=== PATIENT | male | born 1950 | race Caucasian/White ===

== ENCOUNTER → 2016-12-24 | Outpatient (CLI) | payer MEDICARE, OTHER ==
[2016-12-24 08:02] LABS: ALT 46 U/L (21-72); AST 31 U/L (17-59); Cholesterol 141 mg/dL (<200); HDL Cholesterol 44 mg/dL (40-60); Triglycerides 142 mg/dL (<150)
== END | disposition home or self-care (01) ==
LOC: LABWHC1 07:07
PROVIDERS: ATTEND Internal Medicine Interventional Cardiology
DX: E78.2 Mixed hyperlipidemia (principal)
CPT/HCPCS: 36415; 80061; 84450; 84460

== ENCOUNTER → 2017-01-17 | Outpatient (CLI) | payer MEDICARE, OTHER | END | disposition home or self-care (01) | LOC: LABWHC1 07:03 | PROVIDERS: ATTEND Urology | DX: R97.20 Elevated prostate specific antigen [PSA] (principal) | CPT/HCPCS: 36415; 84153 ==

== ENCOUNTER → 2017-08-19 | Outpatient (CLI) | payer MEDICARE, OTHER ==
[2017-08-19 08:23] LABS: ALT 46 U/L (21-72); AST 29 U/L (17-59); Albumin 4.5 g/dL (3.5-5.0); Alkaline Phosphatase 111 U/L (38-126); Anion Gap 12 mmol/L; Blood Urea Nitrogen 25 mg/dL (9-20); Calcium 9.8 mg/dL (8.4-10.2); Carbon Dioxide 30 mmol/L (22-30); Chloride 99 mmol/L (98-107); Cholesterol 143 mg/dL (<200); Glucose 138 mg/dL (74-99); HDL Cholesterol 47 mg/dL (40-60); LDL Cholesterol,Calculated 73 mg/dL (0-99); Potassium 4.5 mmol/L (3.5-5.1); Sodium 141 mmol/L (137-145); Total Bilirubin 0.7 mg/dL (0.2-1.3); Total Protein 7.1 g/dL (6.3-8.2); Triglycerides 113 mg/dL (<150)
== END | disposition home or self-care (01) ==
LOC: LABWHC1 07:17
PROVIDERS: ATTEND Internal Medicine Interventional Cardiology
DX: E78.2 Mixed hyperlipidemia (principal)
CPT/HCPCS: 36415; 80053; 80061

== ENCOUNTER → 2018-02-06 | Outpatient (CLI) | payer MEDICARE, OTHER ==
[2018-02-06 08:16] LABS: ALT 43 U/L (21-72); AST 31 U/L (17-59); Albumin 4.5 g/dL (3.5-5.0); Alkaline Phosphatase 100 U/L (38-126); Anion Gap 11 mmol/L; Blood Urea Nitrogen 14 mg/dL (9-20); Calcium 9.5 mg/dL (8.4-10.2); Carbon Dioxide 25 mmol/L (22-30); Chloride 102 mmol/L (98-107); Cholesterol 143 mg/dL (<200); Glucose 130 mg/dL (74-99); HDL Cholesterol 42 mg/dL (40-60); LDL Cholesterol,Calculated 77 mg/dL (0-99); Potassium 4.1 mmol/L (3.5-5.1); Sodium 138 mmol/L (137-145); Total Bilirubin 1.1 mg/dL (0.2-1.3); Total Protein 7.2 g/dL (6.3-8.2); Triglycerides 118 mg/dL (<150)
== END | disposition home or self-care (01) ==
LOC: LABWHC1 07:19
PROVIDERS: ATTEND Internal Medicine Interventional Cardiology
DX: E78.2 Mixed hyperlipidemia (principal)
CPT/HCPCS: 36415; 80053; 80061

== ENCOUNTER 2018-05-21 13:25 | Emergency (ER) | payer MEDICARE, OTHER ==
[2018-05-21 13:30] VITALS: BP 157/74; PULSE 60; RESP 18; TEMP 97.6
--- NOTE | 2018-05-21 13:53 | ED ---
General Adult HPI - General Chief complaint: Extremity Injury, Lower Stated complaint: Hip pain Time Seen by Provider: 05/21/18 13:41 Source: patient, RN notes reviewed Mode of arrival: ambulatory Limitations: no limitations - History of Present Illness Initial comments: Patient is a pleasant 67-year-old male presenting to the emergency department with complaints of low back and right hip discomfort. Symptoms have been present for around 1 month now. Symptoms are minimal at this time. Discomfort is positional and increases with certain movements including walking. Discomfort did increase last night after bowling. Discomfort does start and right lower back and radiates towards the hip and sometimes down towards the leg as well. No weakness. No loss of sensation. No incontinence or retention of bowel or bladder. Patient does have history of abdominal aortic aneurysm with grafting. Patient states this does not feel similar to his aneurysm. No abdominal pain. - Related Data Home Medications Medication Instructions Recorded Confirmed Acetaminophen [Tylenol Extra 500 mg PO Q6HR PRN 05/21/18 05/21/18 Strength] Atorvastatin [Lipitor] 40 mg PO HS 05/21/18 05/21/18 Cholecalciferol [Vitamin D3] 1,000 unit PO DAILY 05/21/18 05/21/18 Fish Oil/Dha/Epa [Fish Oil 1,200 1 tab PO DAILY 05/21/18 05/21/18 mg Fish Oil] Hydrochlorothiazide 25 mg PO DAILY 05/21/18 05/21/18 Metoprolol Tartrate [Lopressor] 25 mg PO BID 05/21/18 05/21/18 Multivitamins, Thera [Multivitamin 1 tab PO DAILY 05/21/18 05/21/18 (formulary)] Saw [place] 160 mg PO DAILY 05/21/18 05/21/18 Previous Rx's Medication Instructions Recorded Cyclobenzaprine [Flexeril] 10 mg PO TID PRN #12 tablet 05/21/18 methylPREDNISolone Dose Pack 24 mg PO DAILY #1 tab 05/21/18 [Medrol Dose Pack] Allergies Allergy/AdvReac Type Severity Reaction Status Date / Time No Known Allergies Allergy Verified 05/21/18 14:17 Review of Systems ROS Statement: Those systems with pertinent positive or pertinent negative responses have been documented in the HPI. ROS Other: All systems not noted in ROS Statement are negative. Constitutional: Denies: fever Eyes: Denies: eye pain ENT: Denies: ear pain Respiratory: Denies: cough Cardiovascular: Denies: chest pain Endocrine: Denies: fatigue Gastrointestinal: Denies: abdominal pain Genitourinary: Denies: dysuria Musculoskeletal: Reports: as per HPI Skin: Denies: rash Neurological: Denies: weakness Past Medical History Past Medical History: Hyperlipidemia, Hypertension, Myocardial Infarction (MO) History of Any Multi-Drug Resistant Organisms: None Reported Past Surgical History: Hernia Repair Additional Past Surgical History / Comment(s): AAA Past Psychological History: No Psychological Hx Reported Smoking Status: Current every day smoker Past Alcohol Use History: Occasional Past Drug Use History: None Reported General Exam Limitations: no limitations General appearance: alert, in no apparent distress Head exam: Present: atraumatic Eye exam: Present: normal appearance, PERRL ENT exam: Present: normal oropharynx Neck exam: Present: normal inspection Respiratory exam: Present: normal lung sounds bilaterally Cardiovascular Exam: Present: regular rate, normal rhythm Expanded Peripheral pulses: 2+: Dorsalis Pedis (R), Dorsalis Pedis (L) GI/Abdominal exam: Present: soft. Absent: distended, tenderness Extremities exam: Present: normal inspection, full ROM. Absent: tenderness Back exam: Present: tenderness (Mild tenderness right lower paralumbar region and right sciatic region.) Neurological exam: Present: alert Expanded Sensory exam: Lower Extremity Light Touch: Normal Motor strength exam: RLE: 5, LLE: 5 Psychiatric exam: Present: normal affect, normal mood Skin exam: Present: normal color Course Vital Signs 05/21/18 13:27 Temperature 97.6 F Pulse Rate 60 Respiratory 18 Rate Blood Pressure 157/74 O2 Sat by Pulse 98 Oximetry Medical Decision Making - Medical Decision Making Patient reevaluated and resting comfortably in bed. Patient updated on results. Patient is offered to have computed tomography scan done to further evaluate for other potential causes as well as his known aortic problem. Patient refuses this. Patient did state he does not feel his aorta was a cause of the symptoms. Patient did also add that he does have a follow-up appointment soon with his vascular surgeon. - Radiology Data Radiology results: image reviewed (X-ray of the right hip shows mild arthritic changes. X-ray of the lumbar spine shows mild spondylosis. There is some disc space narrowing, especially to L2-L3.) Disposition Clinical Impression: Low back pain Disposition: HOME SELF-CARE Condition: Stable Instructions: Back Pain (ED) Additional Instructions: Please follow-up with primary care physician in the next day or 2 for recheck. Consider orthopedic evaluation. Please also follow-up with her vascular surgeon in the next few days. Return for increased pain, weakness, loss of control of bowel or bladder, worsening symptoms or other concerns. Prescriptions: Cyclobenzaprine [Flexeril] 10 mg PO TID PRN #12 tablet PRN Reason: Pain methylPREDNISolone Dose Pack [Medrol Dose Pack] 24 mg PO DAILY #1 tab Is patient prescribed a controlled substance at d/c from ED?: No Referrals: Osorio Toscano MD [STAFF PHYSICIAN] - 1-2 days Anne Zheng MD [STAFF PHYSICIAN] - 1-2 days Georgette Bateman DO [Doctor of Osteopathic Medicine] - 1-2 days Time of Disposition: 15:35
--- NOTE | 2018-05-21 14:55 | XR ---
EXAMINATION TYPE: XR lumbar spine 2 or 3V DATE OF EXAM: 05/21/2018 COMPARISON: NONE HISTORY: Hip pain and back pain TECHNIQUE: 3 views FINDINGS: Vertebra have normal alignment. There is hypertrophic spurring of the endplates throughout the lumbar spine. There is no compression fracture. There is variable disc space narrowing. L2-3 disc space is more severely narrowed. Sacroiliac joints are intact. IMPRESSION: Spondylotic changes. No fracture seen.
--- NOTE | 2018-05-21 14:57 | XR ---
EXAMINATION TYPE: XR Hip RT and AP Pelvis DATE OF EXAM: 05/21/2018 COMPARISON: NONE HISTORY: Hip pain TECHNIQUE: A single AP view of the pelvis is obtained. Two views of the right hip are obtained. FINDINGS: The pelvic ring is intact. Proximal femurs are intact. There is right-sided acetabular spur ring. There is no sign of hip dysplasia. Sacroiliac joints are intact. There is vascular calcificatio n. The right hip joint space is narrowed compared to the left. Left hip joint space is normal. IMPRESSION: Mild osteoarthritis in the right hip joint. No fracture seen.
[2018-05-21] MEDS ORDERED: predniSONE 20 MG TAB PO STA (15:31)
[2018-05-21] MEDS ORDERED: CYCLOBENZAPRINE 10MG STARTER 3 TAB BTL PO STA (15:31)
== END 2018-05-21 15:43 | disposition home or self-care (01) ==
LOC: EC 13:25
DX: M54.5 Low back pain (principal); M25.551 Pain in right hip; E78.5 Hyperlipidemia, unspecified; I10 Essential (primary) hypertension; I25.2 Old myocardial infarction; F17.200 Nicotine dependence, unspecified, uncomplicated; Z53.29 Procedure and treatment not carried out because of patient's decision for other reasons; Z79.899 Other long term (current) drug therapy
CPT/HCPCS: 72100; 73502; 99283; J7512

== ENCOUNTER → 2018-08-14 | Outpatient (CLI) | payer MEDICARE, OTHER ==
[2018-08-14 17:59] LABS: Albumin 4.8 g/dL (3.80-4.90); Albumin/Globulin Ratio 2.53 (1.60-3.17); Anion Gap 9.9 mmol/L (4.00-12.00); Calcium 9.7 mg/dL (8.7-10.3); Carbon Dioxide 27.1 mmol/L (21.6-31.8); Globulin 1.9 g/dL (1.6-3.3); LDL Cholesterol,Calculated 85.4 mg/dL (0.0-131.0); Potassium 4.4 mmol/L (3.5-5.5); Total Protein 6.7 g/dL (6.2-8.2); VLDL Calculation 29.6 mg/dL (5.00-40.00)
== END | disposition home or self-care (01) ==
LOC: LABWHC1 07:13
PROVIDERS: ATTEND Internal Medicine Interventional Cardiology
DX: E78.2 Mixed hyperlipidemia (principal)
CPT/HCPCS: 36415; 80053; 80061

== ENCOUNTER → 2019-01-18 | Outpatient (CLI) | payer MEDICARE, OTHER ==
[2019-01-18 13:51] LABS: African American GFR (CKD) >90 (>60 ml/min/1.73 sqM); Blood Urea Nitrogen 14 mg/dL (9-20)
--- NOTE | 2019-01-18 14:40 | CT ---
EXAMINATION TYPE: CT soft tissue neck w con DATE OF EXAM: 01/18/2019 2:15 PM COMPARISON: None HISTORY: CHRONIC THROAT PAIN CT DLP: 337.1 mGycm Automated exposure control for dose reduction was used. CONTRAST: CT scan of the neck is performed following with IV Contrast, patient injected with 100 mL of Isovue 3 00. Axial images are obtained, coronal and sagittal reformatted images are reviewed. FINDINGS: Emphysematous changes involving the lung apices. Thyroid enhances normally. Hypertrophic and degenerative change of the vertebral column with severe multilevel degenerative disc disease. Large anterior osteophytic spurs and facet arthropathy contribute to foraminal encroachment . Correlate for scoliotic curvature. Atherosclerotic change of the carotid arteries noted greater on the right with approximate 50-60% alondra nosis of the proximal right ICA and localized 50% narrowing of the posterior margin of the proximal l eft ICA. Nasopharynx and oropharynx are symmetric. Base the tongue is symmetric. Vocal cords have a normal carlee earance. Esophageal wall may be mildly thickened but is decompressed and limited in assessment. No pathologic adenopathy. Prevertebral soft tissue structures within normal limits. Salivary glands h ave a normal appearance. IMPRESSION: 1. There is mild thickening of the wall the proximal esophagus which most likely is related to incomp lete distention correlate clinically to exclude esophagitis. 2. Bilateral carotid artery atherosclerotic change. 3. COPD. 4. If symptoms persist correlate with direct visualization.
== END | disposition home or self-care (01) ==
LOC: RADCTMAIN 13:12
PROVIDERS: ATTEND Otolaryngology
DX: J44.9 Chronic obstructive pulmonary disease, unspecified (principal); R07.0 Pain in throat
CPT/HCPCS: 82565; 84520; 70491; Q9967

== ENCOUNTER 2019-02-14 07:49 | Day surgery (SDC) | payer MEDICARE, OTHER ==
[2019-02-09 08:49] VITALS: BMI 23.0
[~2019-02-14 07:49] MED LIST: LACTATED RINGERS 1,000 ML IV SCH
[2019-02-14 08:12] VITALS: TEMP 96.2
[2019-02-14] MEDS ORDERED: LACTATED RINGERS 1,000 ML IV ONE ×2 (08:15)
[2019-02-14] MEDS ORDERED: GLYCOPYRROLATE 0.2 MG/ML 2 ML VIAL ONE (08:22)
[2019-02-14] MEDS ORDERED: LIDOCAINE 1% INJ 10MG/ML (20 ML MDV) ONE (08:22)
[2019-02-14] MEDS ORDERED: PROPOFOL 10 MG/ML 20 ML VIAL IV ONE (08:22)
--- NOTE | 2019-02-14 08:43 | P.PCN ---
Date of Procedure: 02/14/19 Procedure(s) Performed: BRIEF HISTORY: Patient is a 68-year-old, pleasant, male, scheduled for an upper endoscopy as a part of evaluation of chronic hoarseness/throat irritation for the last 6 months duration. Initially was treated with antibiotics with no help. He was evaluated by Dr. Menezes and had a nasopharyngoscopy that was unremarkable. One time he was also treated with fluconazole for possible Mckayla with no help. He was given a trial of Prilosec and Protonix for almost 6 weeks with no help. Because of the persistent symptoms and clinical suspicion for was a good he scheduled for an upper endoscopy to evaluate further. PROCEDURE PERFORMED: Esophagogastroduodenoscopy with biopsy. PREOPERATIVE DIAGNOSIS: Chronic hoarseness/throat irritation. IV sedation per anesthesia. PROCEDURE: After informed consent was obtained, the patient was brought into the endoscopy unit. IV sedation was administered by Anesthesia under continuous monitoring. Initially the Olympus GIF-140 video endoscope was inserted into the mouth. Esophagus intubated without any difficulty. It was gradually advanced into the stomach and duodenum and carefully examined. The bulb and the second part of the duodenum appeared normal. The scope at this time was withdrawn to the stomach, adequately insufflated with air, and upon careful examination, mucosa of the antrum had mild patchy areaof erythema in the prepyloric area which was biopsied. Rest of the, body, cardia and the fundus appeared normal. The scope was then withdrawn into the esophagus. The GE junction was located at 42 cm from the incisors. The esophagus appeared normal. Biopsies were done from the mid and distal esophagus to rule out reflux esophagitis. There were no erosions or ulcerations seen and the patient tolerated the procedure well. IMPRESSION: 1. Normal-appearing esophagus with no evidence of esophagitis or hiatal hernia. 2. Minimal antral gastritis. RECOMMENDATIONS: The findings of this examination were discussed with the patient as well as his family. He was advised to follow with the biopsy results. In the meantime he will continue with Protonix 40 mg daily for another 8 weeks. If he still remains symptomatic despite aggressive acid suppressive therapy for 12 weeks, he may be a candidate for a pH study off on the PPIs to evaluate further..
[2019-02-14 09:03] VITALS: BP 116/64; PULSE 65; RESP 18
== END 2019-02-14 09:46 | disposition home or self-care (01) ==
LOC: ORWHC2ENDO 07:49
PROVIDERS: ATTEND Internal Medicine Gastroenterology
DX: K29.50 Unspecified chronic gastritis without bleeding (principal); R49.0 Dysphonia; J39.2 Other diseases of pharynx; I25.10 Atherosclerotic heart disease of native coronary artery without angina pectoris; I10 Essential (primary) hypertension; E78.5 Hyperlipidemia, unspecified; I25.2 Old myocardial infarction; I73.9 Peripheral vascular disease, unspecified; F17.210 Nicotine dependence, cigarettes, uncomplicated; K21.9 Gastro-esophageal reflux disease without esophagitis; Z97.2 Presence of dental prosthetic device (complete) (partial); Z79.82 Long term (current) use of aspirin; Z79.899 Other long term (current) drug therapy
CPT/HCPCS: 88305; 43239; J2001; J2704

== ENCOUNTER → 2019-02-23 | Outpatient (CLI) | payer MEDICARE, OTHER ==
[2019-02-23 17:04] LABS: Chol/HDL Ratio 3.45; LDL Cholesterol,Calculated 72.4 mg/dL (0.0-131.0); VLDL Calculation 30.6 mg/dL (5.00-40.00)
== END | disposition home or self-care (01) ==
LOC: LABWHC1 07:29
PROVIDERS: ATTEND Nurse Practitioner Adult Health
DX: E78.2 Mixed hyperlipidemia (principal)
CPT/HCPCS: 36415; 80061; 84450; 84460

== ENCOUNTER → 2019-03-08 | Outpatient (CLI) | payer MEDICARE, OTHER ==
--- NOTE | 2019-03-08 13:25 | FL ---
EXAMINATION TYPE: FL barium swallow w video DATE OF EXAM: 03/08/2019 COMPARISON: NONE HISTORY: Dysphagia TECHNIQUE: Fluoroscopy. FINDINGS: Fluoroscopic guidance was provided for the procedure performed in conjunction with the [facility] pathology department. Please see complete report forthcoming from the Speech Pathology departmen t. Various consistencies from thin liquid to solids were administered. Fluoroscopy time 1 minute 14 seconds. Number of images: 0. No aspiration or penetration was evident. No significant pooling was observed in the vallecula. There was normal propulsion of the bolus. Note is made of large inferior cervical spine anterior spurs. IMPRESSION: 1. Normal modified barium swallow. 2. Cervical spine anterior spurring
== END | disposition home or self-care (01) ==
LOC: RADFLMAIN 10:48
PROVIDERS: ATTEND Internal Medicine Gastroenterology
DX: M46.02 Spinal enthesopathy, cervical region (principal)
CPT/HCPCS: 74230

== ENCOUNTER → 2019-03-28 | Outpatient (CLI) | payer MEDICARE, OTHER ==
--- NOTE | 2019-03-28 15:28 | XR ---
EXAMINATION TYPE: XR chest 2V DATE OF EXAM: 03/28/2019 COMPARISON: Chest x-ray and CTA chest March 19, 2016. HISTORY: Cough, presurgical study. TECHNIQUE: Frontal and lateral views of the chest are obtained. FINDINGS: There is background chronic emphysematous change without suspicious focal air space opacit y, pleural effusion, or pneumothorax seen. Pectus excavatum deformity redemonstrated. The cardiac si lhouette size remains within normal limits with atherosclerotic change in the thoracic aorta. The o sseous structures are intact. IMPRESSION: Chronic changes without acute pulmonary process.
== END | disposition home or self-care (01) ==
LOC: RADXRMAIN 14:38
PROVIDERS: ATTEND Otolaryngology
DX: R91.8 Other nonspecific abnormal finding of lung field (principal); R05 Cough
CPT/HCPCS: 71046; 93005

== ENCOUNTER 2019-12-04 01:30 | Emergency (ER) | payer MEDICARE, OTHER ==
[2019-12-04 01:38] VITALS: TEMP 98
[2019-12-04] MEDS ORDERED: LORazepam 2 MG/ML INJ IV STA (01:47)
--- NOTE | 2019-12-04 01:52 | ED ---
SOB HPI - General Chief Complaint: Shortness of Breath Stated Complaint: Diff Breathing Time Seen by Provider: 12/04/19 01:41 Source: patient Mode of arrival: ambulatory Limitations: no limitations - History of Present Illness Initial Comments: 69-year-old male patient presents to the emergency department today for evaluation of shortness of breath. Patient states around 11 PM this evening when going to bed he started to feel like he was having trouble breathing. States he is unsure exactly how to describe up with something didn't feel right. Denies any chest pain. Patient does have a history of lung cancer and did have partial lung resection and radiation. States that he has a chronic cough from this. He denies any leg swelling. Denies dizziness or weakness. Denies any fever or chills. Patient states once he started having trouble he became very anxious and worried. States that he does have history of anxiety and this happens to him. Patient denies any recent rash, abdominal pain, nausea, vomiting, diarrhea, constipation, back pain, numbness, tingling, hematuria, dysuria, urinary urgency, urinary frequency, headache, visual changes, or any other complaints. - Related Data Home Medications Medication Instructions Recorded Confirmed Atorvastatin [Lipitor] 40 mg PO HS 05/21/18 02/09/19 Cholecalciferol [Vitamin D3] 2,000 unit PO DAILY 05/21/18 02/09/19 Fish Oil/Dha/Epa [Fish Oil 1,200 1 tab PO DAILY 05/21/18 02/09/19 mg Fish Oil] Hydrochlorothiazide 25 mg PO DAILY 05/21/18 02/09/19 Metoprolol Tartrate [Lopressor] 25 mg PO BID 05/21/18 02/09/19 Multivitamins, Thera [Multivitamin 1 tab PO DAILY 05/21/18 02/09/19 (formulary)] Aspirin 325 mg PO DAILY 02/09/19 02/09/19 Pantoprazole [Protonix] 40 mg PO PC-SUPPER 02/09/19 02/09/19 Saw [place] 1,000 mg PO DAILY 02/09/19 02/09/19 Allergies Allergy/AdvReac Type Severity Reaction Status Date / Time No Known Allergies Allergy Verified 12/04/19 01:37 Review of Systems ROS Statement: Those systems with pertinent positive or pertinent negative responses have been documented in the HPI. ROS Other: All systems not noted in ROS Statement are negative. Past Medical History Past Medical History: Hyperlipidemia, Hypertension, Myocardial Infarction (MO), Osteoarthritis (OA), Prostate Disorder Additional Past Medical History / Comment(s): diff swallowing, sore throat, "prediabetic"- diet control, Last Myocardial Infarction Date:: 1991 History of Any Multi-Drug Resistant Organisms: None Reported Past Surgical History: Hernia Repair Additional Past Surgical History / Comment(s): AAA repair, oral/tongue surgery, Past Anesthesia/Blood Transfusion Reactions: No Reported Reaction Past Psychological History: No Psychological Hx Reported Smoking Status: Current every day smoker Past Alcohol Use History: Rare Past Drug Use History: None Reported - Past Family History Brother(s) Family Medical History: Cancer Additional Family Medical History / Comment(s): lung Father Additional Family Medical History / Comment(s): pancreatic General Exam Limitations: no limitations General appearance: alert, in no apparent distress, other (This a well-deve loped, well-nourished adult male patient who appears mildly anxious. Vital signs upon presentation are temperature 98.0F, pulse 66, respirations 22, blood pressure 166/75, pulse ox 97% on room air.) Eye exam: Present: normal appearance, PERRL, EOMI. Absent: scleral icterus, conjunctival injection, periorbital swelling ENT exam: Present: normal exam, normal oropharynx, mucous membranes moist Respiratory exam: Present: normal lung sounds bilaterally, other (Tachypnea). Absent: respiratory distress, wheezes, rales, rhonchi, stridor Cardiovascular Exam: Present: regular rate, normal rhythm, normal heart sounds. Absent: systolic murmur, diastolic murmur, rubs, gallop, clicks GI/Abdominal exam: Present: soft, normal bowel sounds. Absent: distended, tenderness, guarding, rebound, rigid Neurological exam: Present: alert, oriented X3, CN II-XII intact Psychiatric exam: Present: normal affect, normal mood Skin exam: Present: warm, dry, intact, normal color. Absent: rash Course Vital Signs 12/04/19 12/04/19 01:32 02:29 Temperature 98 F Pulse Rate 66 Respiratory 22 20 Rate Blood Pressure 166/75 O2 Sat by Pulse 97 Oximetry Medical Decision Making - Medical Decision Making 69-year-old male patient past medical history significant for lung cancer presents to the emergency department today for evaluation of shortness of breath and anxiety. Physical examination reveals clear equal lung sounds. He does have some tachypnea no accessory muscle use or person lip breathing noted. Oxygen saturation has been satisfactory on room air. Chest x-ray shows no acute cardio pulmonary process. Labs reviewed and are unremarkable. Troponin is negative. EKG showed normal sinus rhythm. Patient was given a dose of Ativan for his anxiety. Upon reevaluation he is resting comfortably in bed. States that his symptoms have resolved. Patient has not had any chest pain with these symptoms. He will be discharged to follow up with his primary care physician for recheck in 1-2 days. Return parameters were discussed in detail. He verbalizes understanding and agrees with this plan - Lab Data Result diagrams: 12/04/19 02:17 12/04/19 02:17 Lab Results 12/04/19 12/04/19 12/04/19 Range/Units 02:17 02:17 02:17 WBC 5.4 (3.8-10.6) k/uL RBC 4.50 (4.30-5.90) m/uL Hgb 15.5 (13.0-17.5) gm/dL Hct 44.5 (39.0-53.0) % MCV 98.9 (80.0-100.0) fL MCH 34.4 (25.0-35.0) pg MCHC 34.8 (31.0-37.0) g/dL RDW 12.4 (11.5-15.5) % Plt Count 163 (150-450) k/uL Neutrophils % 69 % Lymphocytes % 11 % Monocytes % 12 % Eosinophils % 4 % Basophils % 1 % Neutrophils # 3.7 (1.3-7.7) k/uL Lymphocytes # 0.6 L (1.0-4.8) k/uL Monocytes # 0.7 (0-1.0) k/uL Eosinophils # 0.2 (0-0.7) k/uL Basophils # 0.1 (0-0.2) k/uL PT 10.7 (9.0-12.0) sec INR 1.0 (<1.2) APTT 24.7 (22.0-30.0) sec Sodium 133 L (137-145) mmol/L Potassium 3.9 (3.5-5.1) mmol/L Chloride 100 (98-107) mmol/L Carbon Dioxide 26 (22-30) mmol/L Anion Gap 7 mmol/L BUN 15 (9-20) mg/dL Creatinine 0.66 (0.66-1.25) mg/dL Est GFR (CKD-EPI)AfAm >90 (>60 ml/min/1.73 sqM) Est GFR (CKD-EPI)NonAf >90 (>60 ml/min/1.73 sqM) Glucose 135 H (74-99) mg/dL Plasma Lactic Acid Siva (0.7-2.0) mmol/L Calcium 9.2 (8.4-10.2) mg/dL Total Bilirubin 0.3 (0.2-1.3) mg/dL AST 27 (17-59) U/L ALT 21 (4-49) U/L Alkaline Phosphatase 115 (38-126) U/L Troponin I (0.000-0.034) ng/mL Total Protein 6.6 (6.3-8.2) g/dL Albumin 4.2 (3.5-5.0) g/dL 12/04/19 12/04/19 Range/Units 02:17 02:17 WBC (3.8-10.6) k/uL RBC (4.30-5.90) m/uL Hgb (13.0-17.5) gm/dL Hct (39.0-53.0) % MCV (80.0-100.0) fL MCH (25.0-35.0) pg MCHC (31.0-37.0) g/dL RDW (11.5-15.5) % Plt Count (150-450) k/uL Neutrophils % % Lymphocytes % % Monocytes % % Eosinophils % % Basophils % % Neutrophils # (1.3-7.7) k/uL Lymphocytes # (1.0-4.8) k/uL Monocytes # (0-1.0) k/uL Eosinophils # (0-0.7) k/uL Basophils # (0-0.2) k/uL PT (9.0-12.0) sec INR (<1.2) APTT (22.0-30.0) sec Sodium (137-145) mmol/L Potassium (3.5-5.1) mmol/L Chloride (98-107) mmol/L Carbon Dioxide (22-30) mmol/L Anion Gap mmol/L BUN (9-20) mg/dL Creatinine (0.66-1.25) mg/dL Est GFR (CKD-EPI)AfAm (>60 ml/min/1.73 sqM) Est GFR (CKD-EPI)NonAf (>60 ml/min/1.73 sqM) Glucose (74-99) mg/dL Plasma Lactic Acid Siva 1.2 (0.7-2.0) mmol/L Calcium (8.4-10.2) mg/dL Total Bilirubin (0.2-1.3) mg/dL AST (17-59) U/L ALT (4-49) U/L Alkaline Phosphatase (38-126) U/L Troponin I <0.012 (0.000-0.034) ng/mL Total Protein (6.3-8.2) g/dL Albumin (3.5-5.0) g/dL - EKG Data -: EKG Interpreted by Me EKG Comments: EKG obtained at shows normal sinus rhythm with a ventricular rate of 66, [place] interval 198, QRS duration 102, QT 426, QTc 446. No evidence of ST elevation or depression. - Radiology Data Radiology results: report reviewed, image reviewed Two-view x-ray of the chest is obtained. Report was reviewed in its entirety. Impression by Dr. Wilkinson shows no active cardiopulmonary disease. Normal heart. There is clearing of minimal left-sided pleural fluid compared to old exam. Disposition Clinical Impression: Dyspnea Disposition: HOME SELF-CARE Condition: Good Instructions (If sedation given, give patient instructions): Dyspnea (ED) Additional Instructions: Follow up with your primary care physician for recheck in 1-2 days. Return to the emergency department immediately for any new, worsening, or concerning symptoms. Is patient prescribed a controlled substance at d/c from ED?: No Referrals: None,Stated [Primary Care Provider] - 1-2 days Time of Disposition: 03:10
--- NOTE | 2019-12-04 02:11 | XR ---
EXAMINATION TYPE: XR chest 2V DATE OF EXAM: 12/04/2019 COMPARISON: 03/28/2019 HISTORY: Cough. TECHNIQUE: 2 views FINDINGS: Heart is normal. Lungs are clear of consolidation. There are no hilar masses. Costophrenic angles are clear. There are chest leads. IMPRESSION: No active cardiopulmonary disease. Normal heart. There is clearing of the minimal left-si ded pleural fluid compared to old exam.
[2019-12-04 02:25] LABS: Basophils # (A) 0.1 k/uL (0-0.2); Basophils % (A) 1 %; Eosinophils # (A) 0.2 k/uL (0-0.7); Eosinophils % (A) 4 %; HCT 44.5 % (39.0-53.0); HGB 15.5 gm/dL (13.0-17.5); Lymphocytes # (A) 0.6 k/uL (1.0-4.8); Lymphocytes % (A) 11 %; MCH 34.4 pg (25.0-35.0); MCHC 34.8 g/dL (31.0-37.0); MCV 98.9 fL (80.0-100.0); Mean Platelet Volume 7.5; Monocytes # (A) 0.7 k/uL (0-1.0); Monocytes % (A) 12 %; Neutrophils # (A) 3.7 k/uL (1.3-7.7); Neutrophils % (A) 69 %; Platelet Count 163 k/uL (150-450); RDW 12.4 % (11.5-15.5); WBC 5.4 k/uL (3.8-10.6)
[2019-12-04 02:36] LABS: Partial Thromboplastin Time 24.7 sec (22.0-30.0); Prothrombin Time 10.7 sec (9.0-12.0)
[2019-12-04 02:41] LABS: ALT 21 U/L (4-49); AST 27 U/L (17-59); African American GFR (CKD) >90 (>60 ml/min/1.73 sqM); Albumin 4.2 g/dL (3.5-5.0); Alkaline Phosphatase 115 U/L (38-126); Anion Gap 7 mmol/L; Blood Urea Nitrogen 15 mg/dL (9-20); Calcium 9.2 mg/dL (8.4-10.2); Carbon Dioxide 26 mmol/L (22-30); Chloride 100 mmol/L (98-107); Glucose 135 mg/dL (74-99); Non-African American GFR(CKD) >90 (>60 ml/min/1.73 sqM); Potassium 3.9 mmol/L (3.5-5.1); Sodium 133 mmol/L (137-145); Total Bilirubin 0.3 mg/dL (0.2-1.3); Total Protein 6.6 g/dL (6.3-8.2)
[2019-12-04 03:35] VITALS: BP 132/74; PULSE 57; RESP 18
== END 2019-12-04 03:20 | disposition home or self-care (01) ==
LOC: EC 01:30
DX: R06.00 Dyspnea, unspecified (principal); I10 Essential (primary) hypertension; E78.5 Hyperlipidemia, unspecified; M19.90 Unspecified osteoarthritis, unspecified site; N42.9 Disorder of prostate, unspecified; F41.9 Anxiety disorder, unspecified; I25.2 Old myocardial infarction; F17.200 Nicotine dependence, unspecified, uncomplicated; Z79.82 Long term (current) use of aspirin; Z79.899 Other long term (current) drug therapy; Z85.118 Personal history of other malignant neoplasm of bronchus and lung; Z92.3 Personal history of irradiation; Z90.2 Acquired absence of lung [part of]; Z20.828 Contact with and (suspected) exposure to other viral communicable diseases
CPT/HCPCS: 96374; 99285; 36415; 93005; 80053; 83605; 84484; 85025; 85610; 85730; 71046; U0003; J2060

== ENCOUNTER → 2019-12-17 | Outpatient (CLI) | payer MEDICARE, OTHER ==
[2019-12-17 16:04] LABS: Chol/HDL Ratio 2.91
== END | disposition home or self-care (01) ==
LOC: LABWHC1 07:21
PROVIDERS: ATTEND Nurse Practitioner Adult Health
DX: E78.2 Mixed hyperlipidemia (principal)
CPT/HCPCS: 36415; 80061; 84450; 84460

== ENCOUNTER → 2020-02-08 | Outpatient (CLI) | payer MEDICARE, OTHER ==
--- NOTE | 2020-02-08 13:27 | FL ---
EXAMINATION TYPE: FL barium swallow w video DATE OF EXAM: 02/08/2020 COMPARISON: NONE HISTORY: Epiglottis cancer and surgery TECHNIQUE: Fluoroscopy. FINDINGS: Fluoroscopic guidance was provided for the procedure performed in conjunction with the [facility] pathology department. Please see complete report forthcoming from the Speech Pathology departmen t. Various consistencies from thin liquid to solids were administered. Fluoroscopy time 2 minutes 38 seconds. Number of images: 0. There is some transient penetration with thin liquids some trace aspiration may have been present wit hin liquids. Note is made of sluggish epiglottic inversion and reduced CP muscle relaxation. See comp lete report forthcoming from the speech pathology department. IMPRESSION: 1. Trace aspiration with transient penetration with thin liquids.
== END | disposition home or self-care (01) ==
LOC: RADFLMAIN 10:46
PROVIDERS: ATTEND Otolaryngology
DX: R13.10 Dysphagia, unspecified (principal)
CPT/HCPCS: 74230

== ENCOUNTER → 2020-05-14 | Outpatient (CLI) | payer MEDICARE, OTHER ==
[2020-05-14 11:06] LABS: African American GFR (CKD) 104.2 (60.0-200.0); Albumin 4.6 g/dL (3.80-4.90); Albumin/Globulin Ratio 2.71 (1.60-3.17); Anion Gap 6.7 mmol/L (4.00-12.00); Calcium 9.7 mg/dL (8.7-10.3); Carbon Dioxide 31.3 mmol/L (21.6-31.8); Chol/HDL Ratio 2.4; Globulin 1.7 g/dL (1.6-3.3); Non-African American GFR(CKD) 89.9 (60.0-200.0); Potassium 4.6 mmol/L (3.5-5.5); Total Protein 6.3 g/dL (6.2-8.2)
== END | disposition home or self-care (01) ==
LOC: LABWHC1 07:16
PROVIDERS: ATTEND Nurse Practitioner Adult Health
DX: E78.2 Mixed hyperlipidemia (principal); I10 Essential (primary) hypertension
CPT/HCPCS: 36415; 80053; 80061

== ENCOUNTER → 2020-11-18 | Outpatient (CLI) | payer MEDICARE, OTHER ==
[2020-11-18 20:25] LABS: Chol/HDL Ratio 2.76; LDL Cholesterol,Calculated 63.2 mg/dL (0.0-131.0); VLDL Calculation 17.8 mg/dL (5.00-40.00)
== END | disposition home or self-care (01) ==
LOC: LABWHC1 07:24
PROVIDERS: ATTEND Nurse Practitioner Adult Health
DX: E78.2 Mixed hyperlipidemia (principal)
CPT/HCPCS: 36415; 80061

== ENCOUNTER 2021-01-23 11:32 | Emergency (ER) | payer MEDICARE, OTHER ==
[2021-01-23 11:55] VITALS: BP 145/75; PULSE 67; RESP 18; TEMP 98.1
[2021-01-23] MEDS ORDERED: HYDROcodone/APAP 5-325MG 1 EACH TAB PO STA (12:27)
[2021-01-23] MEDS ORDERED: KETOROLAC 15 MG/ML 1 ML VIAL IM STA (12:29)
--- NOTE | 2021-01-23 12:47 | ED ---
Extremity Problem HPI - General Chief complaint: Extremity Problem,Nontraumatic Stated complaint: Hip pain Time Seen by Provider: 01/23/21 12:09 Source: patient, RN notes reviewed Mode of arrival: wheelchair Limitations: no limitations - History of Present Illness Initial comments: This a 70-year-old male presents emergency Department with chief complaint of left hip pain. Patient states this started over a week ago has not improved. He states is injured his hip and back in the past and usually resolves he's been trying creams, lidocaine patches no relief. Patient states it's worse when he stands, movement of his left hip. He states his shooting type pain and radiates down his leg. Denies any bowel bladder incontinence or retentionlast use no lower extremity paresthesias currently. - Related Data Home Medications Medication Instructions Recorded Confirmed Atorvastatin [Lipitor] 40 mg PO HS 05/21/18 01/23/21 Metoprolol Tartrate [Lopressor] 25 mg PO BID 05/21/18 01/23/21 hydroCHLOROthiazide 25 mg PO DAILY 05/21/18 01/23/21 Saw [place] 500 mg PO DAILY 02/09/19 01/23/21 Artificial Tears-Hypromellose 1 drop BOTH EYES QID PRN 01/23/21 01/23/21 [Artificial Tear Drops] Aspirin EC [Ecotrin Low Dose] 81 mg PO DAILY 01/23/21 01/23/21 Cholecalciferol [Vitamin D3 (25 100 mcg PO DAILY 01/23/21 01/23/21 Mcg = 1000 Iu)] Multivit-Min/FA/Lycopen/Lutein 1 tab PO DAILY 01/23/21 01/23/21 [Centrum Silver Tablet] Nitroglycerin Sl Tabs [Nitrostat] 0.4 mg SL Q5M PRN 01/23/21 01/23/21 Previous Rx's Medication Instructions Recorded predniSONE 50 mg PO DAILY #4 tab 01/23/21 Allergies Allergy/AdvReac Type Severity Reaction Status Date / Time No Known Allergies Allergy Verified 01/23/21 13:56 Review of Systems ROS Statement: Those systems with pertinent positive or pertinent negative responses have been documented in the HPI. ROS Other: All systems not noted in ROS Statement are negative. Past Medical History Past Medical History: Coronary Artery Disease (CAD), Cancer, Hyperlipidemia, Hypertension, Myocardial Infarction (MA), Osteoarthritis (OA), Prostate Disorder Additional Past Medical History / Comment(s): diff swallowing, sore throat, "prediabetic"- diet control,. throat CA Last Myocardial Infarction Date:: 1991 History of Any Multi-Drug Resistant Organisms: None Reported Past Surgical History: Hernia Repair Additional Past Surgical History / Comment(s): AAA repair, oral/tongue surgery, Past Anesthesia/Blood Transfusion Reactions: No Reported Reaction Past Psychological History: No Psychological Hx Reported Smoking Status: Former smoker Past Alcohol Use History: Rare Past Drug Use History: None Reported - Past Family History Brother(s) Family Medical History: Cancer Additional Family Medical History / Comment(s): lung Father Additional Family Medical History / Comment(s): pancreatic General Exam Limitations: no limitations General appearance: alert, in no apparent distress Head exam: Present: atraumatic, normocephalic, normal inspection Neck exam: Present: normal inspection, full ROM. Absent: tenderness, meningismus, lymphadenopathy Respiratory exam: Present: normal lung sounds bilaterally. Absent: respiratory distress, wheezes, rales, rhonchi, stridor Cardiovascular Exam: Present: regular rate, normal rhythm, normal heart sounds. Absent: systolic murmur, diastolic murmur, rubs, gallop, clicks Extremities exam: Present: other (Left hip patient has pain with range of motion, neurovascular intact equal color equal warmth strength is equal 5/5) Back exam: Present: full ROM. Absent: tenderness, muscle spasm, paraspinal tenderness, vertebral tenderness Course Vital Signs 01/23/21 11:49 Temperature 98.1 F Pulse Rate 67 Respiratory 18 Rate Blood Pressure 145/75 O2 Sat by Pulse 99 Oximetry Medical Decision Making - Medical Decision Making X-ray shows evidence of arthritic changes, sprain. Patient symptoms more related to radicular symptoms. Patient be discharged in stable condition return parameters discussed. Disposition Clinical Impression: Left hip pain, Radicular pain of left lower extremity Disposition: HOME SELF-CARE Condition: Stable Instructions (If sedation given, give patient instructions): Leg Pain (ED) Additional Instructions: Please return to the Emergency Department if symptoms worsen or any other concerns. Prescriptions: predniSONE 50 mg PO DAILY #4 tab Is patient prescribed a controlled substance at d/c from ED?: No Referrals: None,Stated [Primary Care Provider] - 1-2 days Bjorn Powers, [Doctor of Osteopathic Medicine] - 1-2 days Time of Disposition: 14:06
--- NOTE | 2021-01-23 13:35 | XR ---
EXAMINATION TYPE: XR Hip LT and AP Pelvis DATE OF EXAM: 01/23/2021 COMPARISON: NONE HISTORY: Pelvic and left hip pain for 4 days. TECHNIQUE: 2 AP views of the pelvis are obtained. Two views of the left hip are obtained. FINDINGS: There is no acute fracture/dislocation evident in the pelvis. The sacroiliac joints appea r symmetric and thought within normal limits. Pubic symphysis is intact. Overlying bowel gas noted. A symmetric moderate to severe superior joint space loss right hip with moderate right acetabular spurr ing. Vascular calcification and surgical clips right groin region. Two views of left hip show no acute fracture or dislocation. No focal lytic or sclerotic lesion seen in the proximal left femur. Mild axial joint space loss with mild to moderate acetabular spurring. Arterial vascular calcification left groin region noted. IMPRESSION: As above.
[2021-01-23] MEDS ORDERED: predniSONE 50 MG TAB PO STA (14:05)
[2021-01-23] MEDS ORDERED: ACET/COD 300 MG/30 MG STARTER PACK 6 TAB BTL PO STA (14:06)
== END 2021-01-23 14:54 | disposition home or self-care (01) ==
LOC: EC 11:32
DX: M25.552 Pain in left hip (principal); M54.10 Radiculopathy, site unspecified; I25.10 Atherosclerotic heart disease of native coronary artery without angina pectoris; E78.5 Hyperlipidemia, unspecified; I10 Essential (primary) hypertension; I25.2 Old myocardial infarction; M19.90 Unspecified osteoarthritis, unspecified site; Z79.82 Long term (current) use of aspirin; Z85.818 Personal history of malignant neoplasm of other sites of lip, oral cavity, and pharynx; Z87.891 Personal history of nicotine dependence
CPT/HCPCS: 99284; 96372; 73502; J1885; J7512

== ENCOUNTER → 2021-04-14 | Outpatient (CLI) | payer MEDICARE, OTHER ==
[2021-04-14 15:33] LABS: African American GFR (CKD) 110.7 (60.0-200.0); Albumin 4.4 g/dL (3.8-4.9); Albumin/Globulin Ratio 2.42 (1.60-3.17); Anion Gap 11.5 mmol/L (4.00-12.00); BUN/Creat Ratio 15.93 Ratio (12.00-20.00); Blood Urea Nitrogen 10.8 mg/dL (9.0-27.0); Calcium 9.8 mg/dL (8.7-10.3); Carbon Dioxide 27.9 mmol/L (21.6-31.8); Chol/HDL Ratio 2.22 Ratio; Globulin 1.8 g/dL (1.6-3.3); HDL Cholesterol 56.3 mg/dL (40.00-60.00); LDL Cholesterol,Calculated 52.5 mg/dL (0.0-131.0); Non-African American GFR(CKD) 95.5 (60.0-200.0); Potassium 4.9 mmol/L (3.5-5.5); Total Bilirubin 0.7 mg/dL (0.30-1.20); Total Protein 6.2 g/dL (6.2-8.2); Triglycerides 81.2 mg/dL (0.00-149.00); VLDL Calculation 16.24 mg/dL (5.00-40.00)
== END | disposition home or self-care (01) ==
LOC: LABWHC1 07:41
PROVIDERS: ATTEND Internal Medicine Interventional Cardiology
DX: E78.2 Mixed hyperlipidemia (principal)
CPT/HCPCS: 36415; 80053; 80061

== ENCOUNTER → 2021-04-22 | Outpatient (CLI) | payer MEDICARE, OTHER ==
[2021-04-22 08:39] LABS: Basophils # (A) 0.1 k/uL (0-0.2); Basophils % (A) 1 %; Eosinophils # (A) 0.2 k/uL (0-0.7); Eosinophils % (A) 2 %; HGB 14.7 gm/dL (13.0-17.5); Lymphocytes # (A) 0.6 k/uL (1.0-4.8); Lymphocytes % (A) 6 %; MCH 33.2 pg (25.0-35.0); MCHC 32.6 g/dL (31.0-37.0); MCV 101.9 fL (80.0-100.0); Mean Platelet Volume 7.3; Monocytes # (A) 0.9 k/uL (0-1.0); Monocytes % (A) 10 %; Neutrophils # (A) 7.4 k/uL (1.3-7.7); Neutrophils % (A) 79 %; Platelet Count 178 k/uL (150-450); RBC 4.42 m/uL (4.30-5.90); RDW 12.4 % (11.5-15.5); WBC 9.4 k/uL (3.8-10.6)
[2021-04-22 08:46] LABS: African American GFR (CKD) >90 (>60 ml/min/1.73 sqM); Anion Gap 6 mmol/L; Blood Urea Nitrogen 15 mg/dL (9-20); Calcium 9.7 mg/dL (8.4-10.2); Carbon Dioxide 31 mmol/L (22-30); Chloride 93 mmol/L (98-107); Glucose 115 mg/dL (74-99); Non-African American GFR(CKD) >90 (>60 ml/min/1.73 sqM); Potassium 4.6 mmol/L (3.5-5.1); Sodium 130 mmol/L (137-145)
[2021-04-22 08:57] LABS: Partial Thromboplastin Time 24.3 sec (22.0-30.0); Prothrombin Time 10.6 sec (9.0-12.0)
[2021-04-22 09:46] LABS: Appearance,Urine Clear (Clear); Bilirubin,Urine Negative (Negative); Blood,Urine Negative (Negative); Color,Urine Yellow; Glucose,Urine (UA) Negative (Negative); Ketones,Urine Negative (Negative); Leukocyte Esterase,Urine Negative (Negative); Nitrite,Urine Negative (Negative); PH, Urine 7.5 (5.0-8.0); Protein,Urine Negative (Negative); Specific Gravity,Urine 1.013 (1.001-1.035); Urobilinogen,Urine <2.0 mg/dL (<2.0)
--- NOTE | 2021-04-22 12:39 | XR ---
EXAMINATION TYPE: XR chest 2V DATE OF EXAM: 04/22/2021 COMPARISON: Chest x-ray 12/04/2019, CT chest 03/19/2016 HISTORY: Z01.818 TECHNIQUE: Frontal and lateral views of the chest are obtained. FINDINGS: There is no focal air space opacity, pleural effusion, or pneumothorax seen. The cardiac silhouette size is within normal limits. Prominence of the pulmonary artery could be indicative of p ulmonary artery hypertension. Aorta is dense and aneurysmal. Prominent lung volumes suggest underlyin g COPD. The osseous structures are intact. IMPRESSION: No acute cardiopulmonary process. Emphysema. Thoracic aortic aneurysm.
== END | disposition home or self-care (01) ==
LOC: LABPAT 07:35
PROVIDERS: ATTEND Orthopaedic Surgery Orthopaedic Surgery of the Spine
DX: Z01.818 Encounter for other preprocedural examination (principal); M51.26 Other intervertebral disc displacement, lumbar region; I71.2 Thoracic aortic aneurysm, without rupture; J43.9 Emphysema, unspecified
CPT/HCPCS: 71046; 80048; 81003; 85025; 85610; 85730

== ENCOUNTER 2021-05-04 06:16 | Day surgery (SDC) | payer MEDICARE, OTHER ==
[2021-04-30 09:45] VITALS: BMI 19.9
[~2021-05-04 06:16] MED LIST changes: +DEXAMETHASONE SOD PHOSPHATE 4 MG/ML 1 ML VIAL IV ONE; +ONDANSETRON 4 MG/2 ML VIAL IVP ONE; +ceFAZolin 1,000 MG in SODIUM CHLORIDE 0.9% IRRIGATIO 1,000 ML IRRIGATION PRN
[2021-05-04 07:13] LABS: Glucose,Whole Blood 115 mg/dL (75-99)
[2021-05-04] MEDS ORDERED: MIDAZOLAM 2 MG/2 ML VIAL ONE (07:31)
[2021-05-04] MEDS ORDERED: NEOSTIGMINE 1 MG/ML 10 ML VIAL ONE (07:31)
[2021-05-04] MEDS ORDERED: PROPOFOL 10 MG/ML 20 ML VIAL IV ONE (07:31)
[2021-05-04] MEDS ORDERED: ROCURONIUM 10 MG/ML (5 ML VIAL) IV ONE (07:31)
[2021-05-04] MEDS ORDERED: LIDOCAINE 1% INJ 10MG/ML (20 ML MDV) ONE (07:31)
[2021-05-04] MEDS ORDERED: fentaNYL (PF) 50 MCG/ML 2 ML AMP ONE (07:31)
[2021-05-04] MEDS ORDERED: PHENYLEPHRINE-0.9% NACL SYG 1,000 MCG/10 ML SYRINGE ONE (07:31)
[2021-05-04] MEDS ORDERED: GLYCOPYRROLATE 0.2 MG/ML 2 ML VIAL ONE (07:31)
[2021-05-04] MEDS ORDERED: SUCCINYLCHOLINE CHLORIDE 100 MG/5 ML SYR IV ONE (07:31)
[2021-05-04] MEDS ORDERED: methylPREDNISolone ACETATE 40 MG/ML 1 ML VIAL MISCELLANE ONE (07:36)
[2021-05-04] MEDS ORDERED: LIDOCAINE 0.5%-EPI 1:200,000 50 ML VIAL SQ ONE (07:36)
[2021-05-04] MEDS ORDERED: THROMBIN (BOVINE) 5,000 UNIT VIAL TOPICAL ONE (07:36)
[2021-05-04] MEDS ORDERED: GELATIN SPONGE,ABSORB (LARGE) 1 EACH SPONGE TOPICAL ONE (07:36)
[2021-05-04 07:41] LABS: ALT 29 U/L (4-49); AST 30 U/L (17-59); African American GFR (CKD) >90 (>60 ml/min/1.73 sqM); Albumin 4.4 g/dL (3.5-5.0); Alkaline Phosphatase 110 U/L (38-126); Anion Gap 8 mmol/L; Blood Urea Nitrogen 15 mg/dL (9-20); Calcium 9.7 mg/dL (8.4-10.2); Carbon Dioxide 27 mmol/L (22-30); Chloride 97 mmol/L (98-107); Glucose 129 mg/dL (74-99); Non-African American GFR(CKD) >90 (>60 ml/min/1.73 sqM); Potassium 4.2 mmol/L (3.5-5.1); Sodium 132 mmol/L (137-145); Total Protein 7.1 g/dL (6.3-8.2)
--- NOTE | 2021-05-04 08:53 | FL ---
EXAMINATION TYPE: FL guidance operating room, XR lumbar spine 1V DATE OF EXAM: 05/04/2021 CLINICAL HISTORY: Low back pain. Herniated disc. TECHNIQUE: Fluoroscopy. Lumbar spine intraoperative one view. COMPARISON: None. FINDINGS: Fluoroscopic guidance was provided during lumbar laminectomy procedure performed by Dr. August dye. A total of 1 seconds of fluoroscopic time was utilized during the procedure and 1 spot intraope rative image is acquired. Single image acquired shows intraoperative access from posterior approach at L5 level. IMPRESSION: As Above.
[2021-05-04] MEDS ORDERED: LACTATED RINGERS 1,000 ML IV ONE (08:58)
[2021-05-04] MEDS ORDERED: ACETAMINOPHEN TAB 325 MG TAB PO PRN (09:13)
[2021-05-04] MEDS ORDERED: traMADol 50 MG TAB PO PRN (09:13)
[2021-05-04] MEDS ORDERED: BENZOCAINE/MENTHOL LOZENG 1 EACH LOZENGE MUCOUS MEM PRN (09:13)
[2021-05-04] MEDS ORDERED: ONDANSETRON 4 MG/2 ML VIAL IVP PRN (09:13)
[2021-05-04] MEDS ORDERED: CYCLOBENZAPRINE 10 MG TAB PO PRN (09:13)
[2021-05-04] MEDS ORDERED: HYDROcodone/APAP 5-325MG 1 EACH TAB PO PRN (09:13)
[2021-05-04] MEDS ORDERED: HYDROmorphone 0.5 MG/0.5 ML SYRINGE IVP PRN (09:13)
[2021-05-04] MEDS ORDERED: SODIUM CHLORIDE 0.9% 1,000 ML IV SCH (09:15)
[2021-05-04] MEDS ORDERED: NITROGLYCERIN SL TABS 0.4 MG TAB SUBLINGUAL PRN (09:16)
[2021-05-04] MEDS ORDERED: HYDROcodone/APAP 7.5-325MG 1 EACH TAB PO PRN (09:16)
[2021-05-04 09:33] VITALS: TEMP 96.8
--- NOTE | 2021-05-04 09:37 | P.OP ---
Date of Procedure: 05/04/21 Preoperative Diagnosis: Herniated nucleus pulposis L4 5, lower extremity radiculopathy, lower extremity weakness, degenerative disc disease Postoperative Diagnosis: Same Anesthesia: GETA Pathology: none sent Condition: stable Disposition: PACU Description of Procedure: BRIEF OPERATIVE NOTE Preoperative Diagnosis:Herniated nucleus pulposis L4 5, lower extremity radiculopathy, lower extremity weakness, degenerative disc disease Postoperative Diagnosis:Herniated nucleus pulposis L4 5, lower extremity radiculopathy, lower extremity weakness, degenerative disc disease Procedure: Laminectomy and decompression L4 5 with partial medial facetectomy and foraminotomy Discectomy for decompression L4 5 Use of C-arm fluoroscopy for guidance Surgeon: Dr. Bateman Glazing Machine Operator: Jama Schrader is present throughout the entire the case persistence during positioning, dissection, exposure, visualization, and all crucial elements of the case as well as closure. Anesthesia: General anesthesia per Dr. Armando Estimated blood loss: Approximately 20 mL Complications: None apparent Components implanted: None Disposition: To recovery room in good stable condition. OPERATIVE INDICATIONS The patient has been having issues in their lower back and lower extremities. He's been having worsening symptoms which have become debilitating for him particular toward his left lower extremity. He was found have a large disc herniation at L4 5 which correlated with his radiculopathy. He was causing severe stenosis at that level. He has significant changes at his lumbar spine including listhesis with disc degeneration and facet arthrosis but he had been managing his back pain fairly well and his lower extremity issues were his primary problem. I felt that he could have benefit with laminectomy discectomy with decompression and we could attempt to potentially avoid fusion surgery. The patient has been through conservative treatment. We discussed various treatment options including surgery, and the patient wishes to proceed with surgery We discussed the risk, patient's alternatives and benefits of surgery including but not limited to, risk of bleeding risk of infection, risk of need for further surgery, risk of decreased, loss of motion, loss of function, nerve damage, paralysis, heart attack, blindness and . OPERATIVE SUMMARY After discussing all the risks, patient alternatives and benefits at length, the patient elected to proceed with surgical intervention, signed informed consent, and presented for their procedure. The patient was seen and examined in the preoperative holding area and the surgical site was marked. The patient was given antibiotics and brought to the operating room. The patient was sedated and intubated by anesthesia in standard fashion. The patient was positioned on to the operating room table in a prone position on the appropriate frame which was well-padded and well molded. We were careful to pad any bony prominences and pressure points. We were careful to maintain the patient's cervical spine and good neutral alignment and position throughout. The patient was prepped and draped in a normal standard fashion. An appropriate timeout and keystone protocol performed. We were able to proceed with the surgery. Fluoroscopy was utilized to establish the appropriate level. The local wound area was infiltrated with local anesthetic. An incision was made at the midline longitudinally over the appropriate levels at L4 5. Dissection was taken down subcutaneously to the level of the fascia which was split midline. Dissection was taken over the lamina. Intraoperative fluoroscopy was taken which showed a marker at the appropriate level. With the appropriate level positively confirmed, we were able to proceed with laminectomy at L4 5 on the left. The wound was copiously irrigated and suctioned dry as had been done periodically throughout the case. I performed a laminectomy with a combination of curettes and a high-speed bur and [place] rongeurs. A small medial facetectomy was performed again further access. A partial foraminotomy was also performed. Portions of the ligamentum flavum were taken down to expose the dura and traversing nerve root. I was able to mobilize the traversing nerve root and gain access to the disc space. Note was made of obvious compression from the disc. Protecting the soft tissue structures, a small annulotomy was established. There is significant amount of extruded material which was able to be removed I was able to perform discectomy and remove any extruded disc fragments and any loose fragments from within the disc itself. There is some disc desiccation noted. I tried to preserve the disc annulus that appeared stable. There were no further extruded fragments noted. There is no evidence of dural tear or leak. Good hemostasis maintained. The wound was copiously irrigated and suctioned dry. Good decompression and discectomy was noted. We were able to proceed with closure. The fascia was closed for a watertight closure. The subcuticular tissue was closed with absorbable suture. The wound was cleaned and dried and dressed with the appropriate dressing. The drapes were broken down. The patient was gently rolled back onto their hospital bed being careful to maintain their cervical spine and good neutral alignment and position. They were woken up by anesthesia, extubated, and brought to the recovery room in good stable condition. The patient will be admitted to the hospital for observation and for appropriate postoperative care, medical management and monitoring. We will continue to follow them closely about the postoperative course.
[2021-05-04] MEDS: HYDROmorphone 0.5 MG/0.5 ML SYRINGE IVP PRN ×2 (09:55→10:02)
[2021-05-04 10:57] VITALS: BP 131/74; PULSE 69; RESP 18
[2021-05-04] MEDS ORDERED: ATORVASTATIN 40 MG TAB PO SCH (21:00)
[2021-05-04] MEDS ORDERED: METOPROLOL TARTRATE 25 MG TAB PO SCH (21:00)
[2021-05-04] MEDS ORDERED: GABAPENTIN 100 MG CAP PO SCH (21:00)
[2021-05-05] MEDS ORDERED: hydroCHLOROthiazide 25 MG TAB PO SCH (09:00)
[2021-05-05] MEDS ORDERED: NON FORMULARY DRUG (Aspirin Ec 81 MG Tablet.Dr) PO SCH (09:00)
[2021-05-05] MEDS ORDERED: CHOLECALCIFEROL 25 MCG (1000 IU) TABLET PO SCH (09:00)
[2021-05-05] MEDS ORDERED: SENNOSIDES-DOCUSATE SODIUM 1 EACH TAB PO SCH (09:00)
[2021-05-05] MEDS ORDERED: NON FORMULARY DRUG (Multivit-Min/Fa/Lycopen/Lutein [Centrum Silver Tablet] 1 EACH Tablet) PO SCH (09:00)
[2021-05-05] MEDS ORDERED: NON FORMULARY DRUG (Saw Palmetto [Saw Palmetto] 500 MG Capsule) PO SCH (09:00)
[2021-05-05] MEDS ORDERED: lisinopriL 5 MG TAB PO SCH (09:00)
[2021-05-05] MEDS ORDERED: NON FORMULARY DRUG (Omega-3 Fatty Acids/Fish Oil [Fish Oil 1,000 Mg Softgel] 1 EACH Capsul PO SCH (09:00)
== END 2021-05-04 11:30 | disposition home or self-care (01) ==
LOC: OR 06:16
PROVIDERS: ATTEND Orthopaedic Surgery Orthopaedic Surgery of the Spine
DX: M51.16 Intervertebral disc disorders with radiculopathy, lumbar region (principal); M43.16 Spondylolisthesis, lumbar region; M48.061 Spinal stenosis, lumbar region without neurogenic claudication; I25.10 Atherosclerotic heart disease of native coronary artery without angina pectoris; Z20.822 Contact with and (suspected) exposure to COVID-19; I11.9 Hypertensive heart disease without heart failure; E11.9 Type 2 diabetes mellitus without complications; E78.2 Mixed hyperlipidemia; Z97.3 Presence of spectacles and contact lenses; R63.4 Abnormal weight loss; Z98.890 Other specified postprocedural states; Z85.21 Personal history of malignant neoplasm of larynx; Z82.49 Family history of ischemic heart disease and other diseases of the circulatory system; I73.9 Peripheral vascular disease, unspecified; Z97.2 Presence of dental prosthetic device (complete) (partial); Z87.891 Personal history of nicotine dependence; N42.9 Disorder of prostate, unspecified; Z79.82 Long term (current) use of aspirin; Z79.891 Long term (current) use of opiate analgesic; Z79.899 Other long term (current) drug therapy
CPT/HCPCS: 80053; 87635; 72020; 63047; J2250; J1030; J2710; J0690 ×2; J2405; J2001; J3010; J2370; J0330; J2704; J1170

== ENCOUNTER → 2021-10-07 | Outpatient (CLI) | payer MEDICARE, OTHER ==
[2021-10-07 16:02] LABS: ALT 26 U/L (10-49); AST 26 U/L (14-35); African American GFR (CKD) 103.1 (60.0-200.0); Albumin 4.4 g/dL (3.8-4.9); Albumin/Globulin Ratio 2.14 (1.60-3.17); Alkaline Phosphatase 135 U/L (41-126); BUN/Creat Ratio 15.76 Ratio (12.00-20.00); Blood Urea Nitrogen 12.5 mg/dL (9.0-27.0); Calcium 9.4 mg/dL (8.7-10.3); Carbon Dioxide 28.8 mmol/L (20.0-27.5); Chloride 91 mmol/L (96-109); Chol/HDL Ratio 2.43 Ratio; Globulin 2.1 g/dL (1.6-3.3); Glucose 109 mg/dL (70-110); LDL Cholesterol,Calculated 57.8 mg/dL (0.0-131.0); Non-African American GFR(CKD) 88.9 (60.0-200.0); Potassium 4.7 mmol/L (3.5-5.5); Sodium 128 mmol/L (135-145); Total Protein 6.5 g/dL (6.2-8.2); VLDL Calculation 15.76 mg/dL (5.00-40.00)
== END | disposition home or self-care (01) ==
LOC: LABWHC1 07:24
PROVIDERS: ATTEND Internal Medicine Interventional Cardiology
DX: E78.2 Mixed hyperlipidemia (principal)
CPT/HCPCS: 36415; 80053; 80061

== ENCOUNTER → 2021-10-22 | Outpatient (CLI) | payer MEDICARE, OTHER ==
[2021-10-22 14:54] LABS: African American GFR (CKD) 106.1 (60.0-200.0); Anion Gap 11.2 mmol/L (10.00-18.00); BUN/Creat Ratio 19.49 Ratio (12.00-20.00); Blood Urea Nitrogen 14.4 mg/dL (9.0-27.0); Calcium 9.3 mg/dL (8.7-10.3); Carbon Dioxide 25.7 mmol/L (20.0-27.5); Non-African American GFR(CKD) 91.6 (60.0-200.0); Potassium 4.8 mmol/L (3.5-5.5)
== END | disposition home or self-care (01) ==
LOC: LABWHC1 07:57
PROVIDERS: ATTEND Nurse Practitioner Adult Health
DX: I10 Essential (primary) hypertension (principal)
CPT/HCPCS: 36415; 80048

== ENCOUNTER → 2022-04-26 | Outpatient (CLI) | payer MEDICARE, OTHER ==
[2022-04-26 10:25] LABS: ALT 24 U/L (10-49); AST 30 U/L (14-35); African American GFR (CKD) 102.7 (60.0-200.0); Albumin 4.7 g/dL (3.8-4.9); Albumin/Globulin Ratio 2.14 (1.60-3.17); Alkaline Phosphatase 155 U/L (41-126); Blood Urea Nitrogen 11.2 mg/dL (9.0-27.0); Calcium 9.7 mg/dL (8.7-10.3); Carbon Dioxide 28.9 mmol/L (20.0-27.5); Chloride 94 mmol/L (96-109); Globulin 2.2 g/dL (1.6-3.3); Glucose 105 mg/dL (70-110); LDL Cholesterol,Calculated 50.6 mg/dL (0.0-131.0); Non-African American GFR(CKD) 88.6 (60.0-200.0); Potassium 4.7 mmol/L (3.5-5.5); Sodium 133 mmol/L (135-145); Total Protein 6.9 g/dL (6.2-8.2); VLDL Calculation 13.68 mg/dL (5.00-40.00)
== END | disposition home or self-care (01) ==
LOC: LABWHC1 08:06
PROVIDERS: ATTEND Internal Medicine Interventional Cardiology
DX: I10 Essential (primary) hypertension (principal); E78.2 Mixed hyperlipidemia
CPT/HCPCS: 36415; 80053; 80061

== ENCOUNTER → 2022-10-14 | Outpatient (CLI) | payer MEDICARE, OTHER ==
[2022-10-14 15:24] LABS: HCT 49.4 % (39.6-50.0); HGB 16.4 g/dL (13.0-17.0); MCH 33.3 pg (27.0-32.0); MCHC 33.2 g/dL (32.0-37.0); MCV 100.2 fL (80.0-97.0); NRBC Per 100 WBC 0 /100 WBCS (0.0-0.0); Platelet Count 193 X 10*3/uL (140-440); RBC 4.93 X 10*6/uL (4.40-5.60); WBC 7.25 X 10*3/uL (4.50-10.00)
[2022-10-14 15:57] LABS: ALT 28 U/L (10-49); AST 28 U/L (14-35); African American GFR (CKD) 97.3 (60.0-200.0); Albumin 4.5 g/dL (3.8-4.9); Albumin/Globulin Ratio 2.13 (1.60-3.17); Alkaline Phosphatase 154 U/L (41-126); BUN/Creat Ratio 22.38 Ratio (12.00-20.00); Blood Urea Nitrogen 20.1 mg/dL (9.0-27.0); Calcium 9.6 mg/dL (8.7-10.3); Carbon Dioxide 28.2 mmol/L (20.0-27.5); Chloride 95 mmol/L (96-109); Chol/HDL Ratio 2.17 Ratio; Globulin 2.1 g/dL (1.6-3.3); Glucose 109 mg/dL (70-110); LDL Cholesterol,Calculated 50.8 mg/dL (0.0-131.0); Non-African American GFR(CKD) 83.9 (60.0-200.0); Potassium 5.2 mmol/L (3.5-5.5); Sodium 132 mmol/L (135-145); Total Protein 6.6 g/dL (6.2-8.2)
== END | disposition home or self-care (01) ==
LOC: LABWHC1 07:41
PROVIDERS: ATTEND Internal Medicine Interventional Cardiology
DX: I25.10 Atherosclerotic heart disease of native coronary artery without angina pectoris (principal); E78.2 Mixed hyperlipidemia
CPT/HCPCS: 36415; 80053; 80061; 85027

== ENCOUNTER 2023-02-22 13:37 | Inpatient (IN) | payer MEDICARE, OTHER ==
--- NOTE | 2023-02-22 14:07 | ED ---
SOB HPI - General Source: patient, RN notes reviewed Mode of arrival: ambulatory Limitations: no limitations <Stan Ray - Last Filed: 02/22/23 14:06> <Reyes Roland - Last Filed: 02/22/23 19:28> - General Chief Complaint: Shortness of Breath Stated Complaint: Weakness Time Seen by Provider: 02/22/23 14:06 - History of Present Illness Initial Comments: 72-year-old male presents emergency Department with chief complaint of shortness of breath. Patient states having increasing shortness breath the last few days. He states he was getting better throughout the day but states today he has not improved at all. Patient states he feels very rundown he has a history of throat cancer in which he states he HAS a chronic cough so until this cough is worse than normal. Patient denies any significant leg swelling from baseline. Patient denies any reported fever (Stan Ray) This is a 72-year-old male with past medical history significant for cancer in his lung and possibly airway. Patient also has a history of high blood pressure high cholesterol. Patient comes in today complaining that over the last couple of days skiing weaker and weaker and more short of breath. Patient states the shortness of breath is worsened with exertion. Patient denies any chest pain or palpitations. Patient denies any fever or chills. Patient denies any abdominal pain patient denies nausea vomiting diarrhea. Patient denies any near syncopal or syncopal episodes. Patient denies any back pain. (Reyes Roland) - Related Data Home Medications Medication Instructions Recorded Confirmed Atorvastatin [Lipitor] 40 mg PO HS 05/21/18 05/04/21 Metoprolol Tartrate [Lopressor] 25 mg PO BID 05/21/18 05/04/21 hydroCHLOROthiazide 25 mg PO DAILY 05/21/18 05/04/21 Saw [place] 500 mg PO DAILY 02/09/19 05/04/21 Aspirin EC [Ecotrin Low Dose] 81 mg PO DAILY 01/23/21 05/04/21 Cholecalciferol [Vitamin D3 (25 100 mcg PO DAILY 01/23/21 05/04/21 Mcg = 1000 Iu)] Multivit-Min/FA/Lycopen/Lutein 1 tab PO DAILY 01/23/21 05/04/21 [Centrum Silver Tablet] Nitroglycerin Sl Tabs [Nitrostat] 0.4 mg SL Q5M PRN 01/23/21 05/04/21 Gabapentin [Neurontin] 100 mg PO BID 04/30/21 05/04/21 HYDROcodone/APAP 7.5-325MG [[place] 1 tab PO BID PRN 04/30/21 05/04/21 7.5-325] Clarion-3 Fatty Acids/Fish Oil [Fish 1 each PO DAILY 04/30/21 05/04/21 Oil 1,000 mg Softgel] lisinopriL [Zestril] 5 mg PO DAILY 04/30/21 05/04/21 Previous Rx's Medication Instructions Recorded HYDROcodone/APAP 5-325MG [[place] 5] 1 each PO Q6HR PRN #28 tab 05/04/21 Allergies Allergy/AdvReac Type Severity Reaction Status Date / Time No Known Allergies Allergy Verified 02/22/23 13:42 Review of Systems ROS Other: All systems not noted in ROS Statement are negative. <Stan Ray - Last Filed: 02/22/23 14:06> ROS Other: All systems not noted in ROS Statement are negative. <Reyes Roland - Last Filed: 02/22/23 19:28> ROS Statement: Those systems with pertinent positive or pertinent negative responses have been documented in the HPI. Past Medical History Past Medical History: Coronary Artery Disease (CAD), Cancer, Hyperlipidemia, Hypertension, Myocardial Infarction (ND), Osteoarthritis (OA), Prostate Disorder Additional Past Medical History / Comment(s): diff swallowing, sore throat, "prediabetic"- diet control,. throat CA Last Myocardial Infarction Date:: 1991 History of Any Multi-Drug Resistant Organisms: None Reported Past Surgical History: Hernia Repair Additional Past Surgical History / Comment(s): AAA repair, oral/tongue surgery, Past Anesthesia/Blood Transfusion Reactions: No Reported Reaction Past Psychological History: No Psychological Hx Reported Smoking Status: Former smoker - Past Family History Brother(s) Family Medical History: Cancer Additional Family Medical History / Comment(s): lung Father Additional Family Medical History / Comment(s): pancreatic <Stan Ray - Last Filed: 02/22/23 14:06> General Exam Limitations: no limitations <Stan Ray - Last Filed: 02/22/23 14:06> <Reyes Roland - Last Filed: 02/22/23 19:28> - General Exam Comments Initial Comments: Visual Physical Exam Vital signs reviewed General: Well-appearing, nontoxic, no acute distress. Head: Normocephalic, atraumatic Eyes: PERRLA, EOMI ENT: Airway patent Chest: Nonlabored breathing Skin: No visual rash, normal skin tone Neuro: Alert and oriented 3 Musculoskeletal: No gross abnormalities (Stan Ray) GENERAL: Patient is well-developed and well-nourished. Patient is nontoxic and well- hydrated and is in mild distress. ENT: Neck is soft and supple. No significant lymphadenopathy is noted. Oropharynx is clear. Moist mucous membranes. Neck has full range of motion without eliciting any pain. EYES: The sclera were anicteric and conjunctiva were pink and moist. Extraocular movements were intact and pupils were equal round and reactive to light. Eyelids were unremarkable. PULMONARY: Unlabored respirations. Good breath sounds bilaterally. No audible rales rhonchi or wheezing was noted. CARDIOVASCULAR: There is a regular rate and rhythm without any murmurs gallops or rubs. ABDOMEN: Soft and nontender with normal bowel sounds. SKIN: Skin is clear with no lesions or rashes and otherwise unremarkable. NEUROLOGIC: Patient is alert and oriented x3. Cranial nerves II through XII are grossly intact. Motor and sensory are also intact. Normal speech, volume and content. Symmetrical smile. MUSCULOSKELETAL: Normal extremities with adequate strength and full range of motion. LYMPHATICS: No significant lymphadenopathy is noted PSYCHIATRIC: Normal psychiatric evaluation. (Reyes Roland) Course Vital Signs 02/22/23 02/22/23 02/22/23 13:38 14:02 18:30 Temperature 98.1 F 97.8 F Pulse Rate 83 121 H Respiratory 16 20 18 Rate Blood Pressure 180/101 140/93 O2 Sat by Pulse 97 97 Oximetry 02/22/23 19:08 Temperature Pulse Rate 131 H Respiratory Rate Blood Pressure O2 Sat by Pulse Oximetry Medical Decision Making <Stan Ray - Last Filed: 02/22/23 14:06> - Lab Data Result diagrams: 02/22/23 15:19 02/22/23 15:19 <Reyes Roland - Last Filed: 02/22/23 19:28> - Medical Decision Making I performed a quick note portion of discharged signed Stan Ray PA-C (Stan Ray) EKG as interpreted by myself EKG shows a sinus rhythm with occasional PVC at 75 bpm [place] interval 200 QRS is 96 Q-T intervals 391 2 QTC is 420. Patient's EKG shows no ST segment elevation or depression EKG was interpreted by myself and it was repeated because the patient's heart rate jumped up when he got up and walked around. EKG shows atrial fibrillation with rapid ventricular response at 112 bpm QRS is 91 Q-T intervals 320 QTC is 388. I went back into the room to reevaluate the patient and when I was in the patient's heart rate was up into the 130s. Was pt. sent in by a medical professional or institution (MENDEZ Amador, SENIOR BILLING CONSULTANT, urgent care, hospital, or [facility]...) When possible be specific @ -No Did you speak to anyone other than the patient for history (EMS, parent, family, police, friend...)? What history was obtained from this source @ -No Did you review nursing and triage notes (agree or disagree)? Why? @ -I reviewed and agree with nursing and triage notes Were old charts reviewed (outside hosp., previous admission, EMS record, old EKG, old radiological studies, urgent care reports/EKG's, [facility] records)? Report findings @ -I reviewed prior charts prior lab work on this patient Differential Diagnosis (chest pain, altered mental status, abdominal pain women, abdominal pain men, vaginal bleeding, weakness, fever, dyspnea, syncope, headache, dizziness, GI bleed, back pain, seizure, CVA, palpatations, mental health, musculoskeletal)? @ -Differential Dyspnea: Coronary syndrome, arrhythmia, tamponade, asthma, COPD, pulmonary embolism, pneumonia, pneumothorax, pulmonary effusion, anaphylaxis, diabetic ketoacidosis, flailed chest, pulmonary contusion, diaphragmatic rupture, anemia, neuromuscular, this is not meant to be an all-inclusive list. EKG interpreted by me (3pts min.). @ -As above X-rays interpreted by me (1pt min.). @ -Chest x-ray shows no acute abnormality CT interpreted by me (1pt min.). @ -CT chest showed no acute abnormality U/S interpreted by me (1pt. min.). @ -None done What testing was considered but not performed or refused? (CT, X-rays, U/S, labs)? Why? @ -None What meds were considered but not given or refused? Why? @ -None Did you discuss the management of the patient with other professionals (professionals i.e. , PA, SENIOR BILLING CONSULTANT, lab, RT, psych nurse, sexual assault social worker, installation specialist, teacher, public information officer, case management director)? Give summary @ -No Was smoking cessation discussed for >3mins.? @ -No Was critical care preformed (if so, how long)? @ -35 minutes Were there social determinants of health that impacted care today? How? (Homelessness, low income, unemployed, alcoholism, drug addiction, transportation, low edu. Level, literacy, decrease access to med. care, detention, rehab)? @ -No Was there de-escalation of care discussed even if they declined (Discuss DNR or withdrawal of care, Hospice)? DNR status @ -No What co-morbidities impacted this encounter? (DM, HTN, Smoking, COPD, CAD, Cancer, CVA, ARF, Chemo, Hep., AIDS, mental health diagnosis, sleep apnea, morbid obesity)? @ -None Was patient admitted / discharged? Hospital course, mention meds given and rout e, prescriptions, significant lab abnormalities, going to OR and other pertinent info. @ -Patient came in complaining shortness of breath and feeling weak. Patient's lab work was normal CT was normal chest x-ray is normal however when the patient got up to walk to the bathroom he went into atrial fibrillation with rapid ventricular response and became short of breath. At this point time I put the patient on heparin and Cardizem and spoke with [facility] hospitals was admitted the patient admitted the patient wrote admitting orders Undiagnosed new problem with uncertain prognosis? @ -No Drug Therapy requiring intensive monitoring for toxicity (Heparin, Nitro, Insulin, Cardizem)? @ -No Were any procedures done? @ -No Diagnosis/symptom? @ -Atrial fibrillation with rapid ventricular response Acute, or Chronic, or Acute on Chronic? @ -Acute Uncomplicated (without systemic symptoms) or Complicated (systemic symptoms)? @ -Complicated Side effects of treatment? @ -No Exacerbation, Progression, or Severe Exacerbation? @ -No Poses a threat to life or bodily function? How? (Chest pain, USA, ND, pneumonia, PE, COPD, DKA, ARF, appy, cholecystitis, CVA, Diverticulitis, Homicidal, Suicidal, threat to staff... and all critical care pts) @ -No (RolandTicoReyes) - Lab Data Lab Results 02/22/23 02/22/23 02/22/23 Range/Units 15:19 15:19 15:19 WBC 8.2 (3.8-10.6) k/uL RBC 4.64 (4.30-5.90) m/uL Hgb 15.7 (13.0-17.5) gm/dL Hct 46.9 (39.0-53.0) % MCV 101.1 H (80.0-100.0) fL MCH 33.9 (25.0-35.0) pg MCHC 33.6 (31.0-37.0) g/dL RDW 12.3 (11.5-15.5) % Plt Count 183 (150-450) k/uL MPV 7.9 Neutrophils % 76 % Lymphocytes % 11 % Monocytes % 9 % Eosinophils % 2 % Basophils % 0 % Neutrophils # 6.2 (1.3-7.7) k/uL Lymphocytes # 0.9 L (1.0-4.8) k/uL Monocytes # 0.7 (0-1.0) k/uL Eosinophils # 0.1 (0-0.7) k/uL Basophils # 0.0 (0-0.2) k/uL PT 10.9 (9.0-12.0) sec INR 1.0 (<1.2) APTT 25.7 (22.0-30.0) sec D-Dimer (<0.60) mg/L FEU Sodium 131 L (137-145) mmol/L Potassium 4.6 (3.5-5.1) mmol/L Chloride 95 L (98-107) mmol/L Carbon Dioxide 29 (22-30) mmol/L Anion Gap 7 mmol/L BUN 16 (9-20) mg/dL Creatinine 0.58 L (0.66-1.25) mg/dL Est GFR (CKD-EPI)AfAm >90 (>60 ml/min/1.73 sqM) Est GFR (CKD-EPI)NonAf >90 (>60 ml/min/1.73 sqM) Glucose 91 (74-99) mg/dL Plasma Lactic Acid Siva (0.7-2.0) mmol/L Calcium 9.2 (8.4-10.2) mg/dL Magnesium 1.9 (1.6-2.3) mg/dL Total Bilirubin 0.7 (0.2-1.3) mg/dL AST 41 (17-59) U/L ALT 40 (4-49) U/L Alkaline Phosphatase 146 H (38-126) U/L Troponin I (0.000-0.034) ng/mL NT-Pro-B Natriuret Pep 821 pg/mL Total Protein 7.0 (6.3-8.2) g/dL Albumin 4.2 (3.5-5.0) g/dL Urine Color Urine Appearance (Clear) Urine pH (5.0-8.0) Ur Specific [place] (1.001-1.035) Urine Protein (Negative) Urine Glucose (UA) (Negative) Urine Ketones (Negative) Urine Blood (Negative) Urine Nitrite (Negative) Urine Bilirubin (Negative) Urine Urobilinogen (<2.0) mg/dL Ur Leukocyte Esterase (Negative) Influenza Type A (PCR) (Not Detectd) Influenza Type B (PCR) (Not Detectd) RSV (PCR) (Not Detectd) SARS-CoV-2 (PCR) (Not Detectd) 02/22/23 02/22/23 02/22/23 Range/Units 15:19 15:19 15:19 WBC (3.8-10.6) k/uL RBC (4.30-5.90) m/uL Hgb (13.0-17.5) gm/dL Hct (39.0-53.0) % MCV (80.0-100.0) fL MCH (25.0-35.0) pg MCHC (31.0-37.0) g/dL RDW (11.5-15.5) % Plt Count (150-450) k/uL MPV Neutrophils % % Lymphocytes % % Monocytes % % Eosinophils % % Basophils % % Neutrophils # (1.3-7.7) k/uL Lymphocytes # (1.0-4.8) k/uL Monocytes # (0-1.0) k/uL Eosinophils # (0-0.7) k/uL Basophils # (0-0.2) k/uL PT (9.0-12.0) sec INR (<1.2) APTT (22.0-30.0) sec D-Dimer (<0.60) mg/L FEU Sodium (137-145) mmol/L Potassium (3.5-5.1) mmol/L Chloride (98-107) mmol/L Carbon Dioxide (22-30) mmol/L Anion Gap mmol/L BUN (9-20) mg/dL Creatinine (0.66-1.25) mg/dL Est GFR (CKD-EPI)AfAm (>60 ml/min/1.73 sqM) Est GFR (CKD-EPI)NonAf (>60 ml/min/1.73 sqM) Glucose (74-99) mg/dL Plasma Lactic Acid Siva 0.9 (0.7-2.0) mmol/L Calcium (8.4-10.2) mg/dL Magnesium (1.6-2.3) mg/dL Total Bilirubin (0.2-1.3) mg/dL AST (17-59) U/L ALT (4-49) U/L Alkaline Phosphatase (38-126) U/L Troponin I <0.012 (0.000-0.034) ng/mL NT-Pro-B Natriuret Pep pg/mL Total Protein (6.3-8.2) g/dL Albumin (3.5-5.0) g/dL Urine Color Urine Appearance (Clear) Urine pH (5.0-8.0) Ur Specific [place] (1.001-1.035) Urine Protein (Negative) Urine Glucose (UA) (Negative) Urine Ketones (Negative) Urine Blood (Negative) Urine Nitrite (Negative) Urine Bilirubin (Negative) Urine Urobilinogen (<2.0) mg/dL Ur Leukocyte Esterase (Negative) Influenza Type A (PCR) Not Detected (Not Detectd) Influenza Type B (PCR) Not Detected (Not Detectd) RSV (PCR) Not Detected (Not Detectd) SARS-CoV-2 (PCR) Not Detected (Not Detectd) 02/22/23 02/22/23 Range/Units 15:19 18:18 WBC (3.8-10.6) k/uL RBC (4.30-5.90) m/uL Hgb (13.0-17.5) gm/dL Hct (39.0-53.0) % MCV (80.0-100.0) fL MCH (25.0-35.0) pg MCHC (31.0-37.0) g/dL RDW (11.5-15.5) % Plt Count (150-450) k/uL MPV Neutrophils % % Lymphocytes % % Monocytes % % Eosinophils % % Basophils % % Neutrophils # (1.3-7.7) k/uL Lymphocytes # (1.0-4.8) k/uL Monocytes # (0-1.0) k/uL Eosinophils # (0-0.7) k/uL Basophils # (0-0.2) k/uL PT (9.0-12.0) sec INR (<1.2) APTT (22.0-30.0) sec D-Dimer 5.73 H (<0.60) mg/L FEU Sodium (137-145) mmol/L Potassium (3.5-5.1) mmol/L Chloride (98-107) mmol/L Carbon Dioxide (22-30) mmol/L Anion Gap mmol/L BUN (9-20) mg/dL Creatinine (0.66-1.25) mg/dL Est GFR (CKD-EPI)AfAm (>60 ml/min/1.73 sqM) Est GFR (CKD-EPI)NonAf (>60 ml/min/1.73 sqM) Glucose (74-99) mg/dL Plasma Lactic Acid Siva (0.7-2.0) mmol/L Calcium (8.4-10.2) mg/dL Magnesium (1.6-2.3) mg/dL Total Bilirubin (0.2-1.3) mg/dL AST (17-59) U/L ALT (4-49) U/L Alkaline Phosphatase (38-126) U/L Troponin I (0.000-0.034) ng/mL NT-Pro-B Natriuret Pep pg/mL Total Protein (6.3-8.2) g/dL Albumin (3.5-5.0) g/dL Urine Color Colorless Urine Appearance Clear (Clear) Urine pH 7.0 (5.0-8.0) Ur Specific [place] 1.025 (1.001-1.035) Urine Protein Negative (Negative) Urine Glucose (UA) Negative (Negative) Urine Ketones 1+ H (Negative) Urine Blood Negative (Negative) Urine Nitrite Negative (Negative) Urine Bilirubin Negative (Negative) Urine Urobilinogen <2.0 (<2.0) mg/dL Ur Leukocyte Esterase Negative (Negative) Influenza Type A (PCR) (Not Detectd) Influenza Type B (PCR) (Not Detectd) RSV (PCR) (Not Detectd) SARS-CoV-2 (PCR) (Not Detectd) Critical Care Time Critical Care Time: Yes Total Critical Care Time: 35 <Reyes Roland - Last Filed: 02/22/23 19:28> Disposition <Stan Ray - Last Filed: 02/22/23 14:06> Time of Disposition: 19:27 <Reyes Roland - Last Filed: 02/22/23 19:28> Clinical Impression: Atrial fibrillation with rapid ventricular response Disposition: ADMITTED IP TO THIS HOSP Referrals: None,Stated [Primary Care Provider] - 1-2 days
--- NOTE | 2023-02-22 15:02 | XR ---
EXAMINATION TYPE: XR chest 2V DATE OF EXAM: 02/22/2023 COMPARISON: 04/22/2021 TECHNIQUE: PA and lateral views submitted. HISTORY: Shortness of breath FINDINGS: The lungs are clear and there is no pneumothorax, pleural effusion, or focal pneumonia. Heart size normal and no overt failure. Osseous structures demonstrate hypertrophic and degenerative changes of the spine. Biapical pleural thickening. Prominent pulmonary arteries. Emphysematous changes are seen with bullous changes in the right lower lobe. On the left lung apex is a pleural reflection which carlee ear stable dating back to 2020. Chronic rib deformities suggest remote trauma. IMPRESSION: 1. Bullous emphysema advanced in the right lower lobe. Correlate for pulmonary arterial hypertension. 2. Biapical pleural scarring or thickening stable.
[2023-02-22 15:42] LABS: Basophils % (A) 0 %; Eosinophils # (A) 0.1 k/uL (0-0.7); Eosinophils % (A) 2 %; HCT 46.9 % (39.0-53.0); HGB 15.7 gm/dL (13.0-17.5); Lymphocytes # (A) 0.9 k/uL (1.0-4.8); Lymphocytes % (A) 11 %; MCH 33.9 pg (25.0-35.0); MCHC 33.6 g/dL (31.0-37.0); MCV 101.1 fL (80.0-100.0); Mean Platelet Volume 7.9; Monocytes # (A) 0.7 k/uL (0-1.0); Monocytes % (A) 9 %; Neutrophils # (A) 6.2 k/uL (1.3-7.7); Neutrophils % (A) 76 %; Platelet Count 183 k/uL (150-450); RBC 4.64 m/uL (4.30-5.90); RDW 12.3 % (11.5-15.5); WBC 8.2 k/uL (3.8-10.6)
[2023-02-22] MEDS ORDERED: LORazepam 2 MG/ML INJ IV STA (15:42)
[2023-02-22 15:50] LABS: Partial Thromboplastin Time 25.7 sec (22.0-30.0); Prothrombin Time 10.9 sec (9.0-12.0)
[2023-02-22 15:54] LABS: ALT 40 U/L (4-49); AST 41 U/L (17-59); African American GFR (CKD) >90 (>60 ml/min/1.73 sqM); Albumin 4.2 g/dL (3.5-5.0); Alkaline Phosphatase 146 U/L (38-126); Anion Gap 7 mmol/L; Blood Urea Nitrogen 16 mg/dL (9-20); Calcium 9.2 mg/dL (8.4-10.2); Carbon Dioxide 29 mmol/L (22-30); Chloride 95 mmol/L (98-107); Glucose 91 mg/dL (74-99); Magnesium 1.9 mg/dL (1.6-2.3); Non-African American GFR(CKD) >90 (>60 ml/min/1.73 sqM); Potassium 4.6 mmol/L (3.5-5.1); Sodium 131 mmol/L (137-145); Total Bilirubin 0.7 mg/dL (0.2-1.3)
[2023-02-22 16:02] LABS: NT-Pro-B-Type Natriuretic Pept 821 pg/mL
--- NOTE | 2023-02-22 17:24 | CT ---
EXAMINATION TYPE: CT chest angio for PE CT DLP: 267 mGycm, Automated exposure control for dose reduction was used. DATE OF EXAM: 02/22/2023 5:08 PM COMPARISON: 03/19/2016 CT CLINICAL INDICATION:Male, 72 years old with history of Dyspnea, elevated d-dimer; Dyspnea, elevated d -dimer TECHNIQUE/CONTRAST: CTA scan of the thorax is performed with IV Contrast, patient injected with 65ml mL of Isovue 370, [place] P images are created and reviewed these are created on a separate workstation.. FINDINGS: Pulmonary Artery: There is no evidence for a filling defect within the pulmonary vasculature to sugge st acute pulmonary embolism. The pulmonary artery is of normal size. Lungs/Pleura: Moderate to severe emphysema changes present throughout the lungs. No evidence of focal consolidation, pleural effusion or pneumothorax. Airway: Large airways are patent. Heart: Heart is within normal limits for size. Aortic valve leaflet calcifications are present. Moder ate severe coronary artery calcifications. Vasculature: Mild atherosclerotic calcifications are present throughout the aorta and its branches. R eflux of IV contrast into the upper abdomen particularly of the hepatic veins. Mediastinum: No gross evidence of adenopathy. Musculoskeletal: Moderate degenerative disc disease changes are present throughout the thoracolumbar spine. Soft Tissues: Unremarkable. Lower neck: No significant findings. Upper Abdomen: No significant findings. IMPRESSION: 1. No evidence of pulmonary embolism. 2. Reflux of contrast into the hepatic veins. Correlate for cardiac dysfunction. 3. Moderate to severe emphysema changes.
[2023-02-22 18:23] LABS: Appearance,Urine Clear (Clear); Bilirubin,Urine Negative (Negative); Blood,Urine Negative (Negative); Color,Urine Colorless; Glucose,Urine (UA) Negative (Negative); Ketones,Urine 1+ (Negative); Leukocyte Esterase,Urine Negative (Negative); Nitrite,Urine Negative (Negative); Protein,Urine Negative (Negative); Specific Gravity,Urine 1.025 (1.001-1.035); Urobilinogen,Urine <2.0 mg/dL (<2.0)
[2023-02-22] MEDS ORDERED: HEPARIN SODIUM 1,000 UN/ML (10ML VL) IV ONE (18:53)
[2023-02-22] MEDS ORDERED: HEPARIN SOD,PORK IN 0.45% NACL 25,000 UNIT in 0.45% NACL 1 250ML.BAG IV SCH (19:00)
[2023-02-22] MEDS: DILTIAZEM 125 MG in SODIUM CHLORIDE 0.9% 100 ML IV SCH (19:10)
[2023-02-22] MEDS ORDERED: NALOXONE 0.4 MG/ML 1 ML VIAL IV PRN (21:30)
[2023-02-22] MEDS: SODIUM CHLORIDE 0.9% 1,000 ML IV SCH (23:26)
[2023-02-23] MEDS ORDERED: MELATONIN 3 MG TABLET PO PRN ×2 (02:06→21:24)
[2023-02-23] MEDS ORDERED: METOPROLOL TARTRATE 25 MG TAB PO SCH (09:00)
[2023-02-23] MEDS ORDERED: METOPROLOL TARTRATE 25 MG TAB PO STA (10:19)
[2023-02-23] MEDS: lisinopriL 5 MG TAB PO SCH ×2 (10:34→20:19)
[2023-02-23] MEDS: CHOLECALCIFEROL 25 MCG (1000 IU) TABLET PO SCH (10:34)
[2023-02-23] MEDS: APIXABAN 5 MG TAB PO SCH ×2 (10:35→20:18)
[2023-02-23] MEDS: MULTIVITAMINS, THERA 1 EACH TAB PO SCH (10:35)
[2023-02-23 11:21] VITALS: TEMP 98
--- NOTE | 2023-02-23 11:28 | P.HPIM ---
History of Present Illness H&P Date: 02/23/23 This is a 72 year old male with medical history of hypertension, hyperlipidemia, myocardial infarction years ago, AAA repair, former smoker and Hx of throat cancer. Patient Follows with Dr. [facility] and Dr. Barrios for peripheral vascular disease. Was following with Dr. Alvarado who retired and closed his practice, currently not seeing a PCP. Patient presents with 3 day history of fatigue and weakness and not "bouncing back." Denies any chest pain, denies palpitations, denies shortness of breath. No recent illness, no fever or chills. Patient came into the ER for evaluation brought in by his . Initial EKG revealed normal sinus rhythm with PVC's heart rate of 75. Initial blood work reveals MCV 101.1, alk phos 146, negative troponin, age appropriate proBNP 821, sodium 131. Chest xray bullous emphysema in the right lower lobe, correlate for pulmonary arterial hypertension with biapical pleural scarring or thickening. CT angiography of the chest done and negative for pulmonary embolism, there was reflux of contrast into hepatic veins correlate for cardiac dysfunction. Moderate to severe emphysema. Patient does report history of hyponatremia and has been on hydrochlorothiazide in the past, additionally he reports recently being changed from atenolol to metoprolol outpatient. Prior to being discharged from the ER patient had another EKG done which reveals atrial fibrillation with rapid ventricular rate hear rate of 112. Patient was started on cardizem gtt and heparin gtt and admitted to the hospital under medicine with consult placed to cardiology. No prior echocardiogram in the system for review. Currently denying any chest pain, he does not feel as fatigued. Currently remains in atrial fibrillation with heart rate in the 70s. REVIEW OF SYSTEMS: CONSTITUTIONAL: No fever, no malaise, Reports fatigue and generalized weakness. HEENT: No recent visual problems or hearing problems. Denied any sore throat. CARDIOVASCULAR: No chest pain, orthopnea, PND, no palpitations, no syncope. PULMONARY: No shortness of breath, no cough, no hemoptysis. GASTROINTESTINAL: No diarrhea, no nausea, no vomiting, no abdominal pain. NEUROLOGICAL: No headaches, no weakness, no numbness. HEMATOLOGICAL: Denies any bleeding or petechiae. GENITOURINARY: Denies any burning micturition, frequency, or urgency. MUSCULOSKELETAL/RHEUMATOLOGICAL: Denies any joint pain, swelling, or any muscle pain. ENDOCRINE: Denies any polyuria or polydipsia. The rest of the 14-point review of systems is negative. PHYSICAL EXAMINATION: GENERAL: The patient is alert and oriented x3, not in any acute distress. Well developed, well nourished. HEENT: Pupils are round and equally reacting to light. EOMI. No scleral icterus. No conjunctival pallor. Normocephalic, atraumatic. No pharyngeal erythema. No thyromegaly. CARDIOVASCULAR: S1 and S2 present. No murmurs, rubs, or gallops. Irregular rate and rhythm. PULMONARY: Chest is clear to auscultation, no wheezing or crackles. ABDOMEN: Soft, nontender, nondistended, normoactive bowel sounds. No palpable organomegaly. MUSCULOSKELETAL: No joint swelling or deformity. EXTREMITIES: No cyanosis, clubbing, or pedal edema. NEUROLOGICAL: Gross neurological examination did not reveal any focal deficits. SKIN: No rashes. Assessment New-onset atrial fibrillation with rapid ventricular rate currently rate controlled on IV cardizem. Hyponatremia Hypertension Emphysema/COPD with no acute exacerbation History of coronary artery disease and myocardial infarction History of AAA repair Former nicotine use GI prophylaxis DVT prophylaxis Full code Plan Cardiology consultation; echocardiogram and doppler ordered and pending Check a TSH level Heparin gtt discontinued patient has been started on eliquis 5 mg BID Metoprolol has been increased by cardiology, remains on the cardizem gtt Repeat BMP in the AM The impression and plan of care has been dictated by Brianne Duff Nurse Practitioner as directed. Dr. Wilfrido MD I have performed a history and physical examination and medical decision making of this patient, discussed the same with the dictator, and agree with the dictators assessment and plan as written, documented as a scribe. Based on total visit time, I have performed more than 50% of this visit. Past Medical History Past Medical History: Coronary Artery Disease (CAD), Cancer, Hyperlipidemia, Hypertension, Myocardial Infarction ([place]), Osteoarthritis (OA), Prostate Disorder Additional Past Medical History / Comment(s): diff swallowing, sore throat, "prediabetic"- diet control,. throat CA Last Myocardial Infarction Date:: 1991 History of Any Multi-Drug Resistant Organisms: None Reported Past Surgical History: Hernia Repair Additional Past Surgical History / Comment(s): AAA repair, oral/tongue surgery, Past Anesthesia/Blood Transfusion Reactions: No Reported Reaction Past Psychological History: No Psychological Hx Reported Smoking Status: Former smoker - Past Family History Brother(s) Family Medical History: Cancer Additional Family Medical History / Comment(s): lung Father Additional Family Medical History / Comment(s): pancreatic Medications and Allergies Home Medications Medication Instructions Recorded Confirmed Type Atorvastatin [Lipitor] 40 mg PO HS 05/21/18 02/22/23 History Metoprolol Tartrate [Lopressor] 25 mg PO BID 05/21/18 02/22/23 History Saw [place] 500 mg PO BID 02/09/19 02/22/23 History Aspirin EC [Ecotrin Low Dose] 81 mg PO DAILY 01/23/21 02/22/23 History Cholecalciferol [Vitamin D3 (25 25 mcg PO DAILY 01/23/21 02/22/23 History Mcg = 1000 Iu)] Multivit-Min/FA/Lycopen/Lutein 1 tab PO DAILY 01/23/21 02/22/23 History [Centrum Silver Tablet] Nitroglycerin Sl Tabs [Nitrostat] 0.4 mg SL Q5M PRN 01/23/21 02/22/23 History lisinopriL [Zestril] 5 mg PO BID 04/30/21 02/22/23 History Allergies Allergy/AdvReac Type Severity Reaction Status Date / Time No Known Allergies Allergy Verified 02/22/23 19:42 Physical Exam Vitals: Vital Signs Temp Pulse Resp BP Pulse Ox 02/23/23 08:00 75 18 129/71 96 02/23/23 07:00 79 18 123/67 96 02/23/23 06:27 79 18 123/67 97 02/23/23 05:00 76 16 110/64 02/23/23 04:00 75 14 99/57 02/23/23 03:00 71 18 149/75 02/23/23 02:00 89 18 107/62 96 02/23/23 01:00 86 15 100/71 95 02/23/23 00:00 77 14 127/77 96 02/22/23 23:01 82 18 127/77 96 02/22/23 23:00 88 02/22/23 22:00 134 H 14 124/39 02/22/23 21:00 122 H 20 146/97 02/22/23 20:35 122 H 18 146/97 97 02/22/23 20:00 123 H 12 96 02/22/23 19:14 108 H 14 140/93 96 02/22/23 19:08 131 H 02/22/23 18:30 97.8 F 121 H 18 140/93 97 02/22/23 14:02 20 02/22/23 13:38 98.1 F 83 16 180/101 97 Results CBC & Chem 7: 02/22/23 15:19 02/22/23 15:19 Labs: Abnormal Lab Results - Last 24 Hours (Table) 02/22/23 02/22/23 02/22/23 Range/Units 15:19 15:19 15:19 MCV 101.1 H (80.0-100.0) fL Lymphocytes # 0.9 L (1.0-4.8) k/uL D-Dimer 5.73 H (<0.60) mg/L FEU Sodium 131 L (137-145) mmol/L Chloride 95 L (98-107) mmol/L Creatinine 0.58 L (0.66-1.25) mg/dL Alkaline Phosphatase 146 H (38-126) U/L Urine Ketones (Negative) 02/22/23 Range/Units 18:18 MCV (80.0-100.0) fL Lymphocytes # (1.0-4.8) k/uL D-Dimer (<0.60) mg/L FEU Sodium (137-145) mmol/L Chloride (98-107) mmol/L Creatinine (0.66-1.25) mg/dL Alkaline Phosphatase (38-126) U/L Urine Ketones 1+ H (Negative) Assessment and Plan Time with Patient: Less than 30
--- NOTE | 2023-02-23 11:44 | P.CRDCN ---
History of Present Illness Consult date: 02/23/23 Consult reason: atrial fibrillation (With RVR) History of present illness: History of present illness: This is a 72 year old male patient of Dr. Bruno with past medical history of coronary artery disease with 60% mid circumflex stenosis from cardiac catheterization in 1991, hypertension, dyslipidemia, peripheral vascular disease, active tobacco use and dependence. Patient states he has been feeling weak and nervous off and on for a few days and it didn't seem to let up and he chose to come into the hospital for further evaluation. He states he did have a little bit of chest tightness with this as well and shortness of breath with minimal activity. He denies having any lightheadedness or dizziness no syncopal episodes. No palpitations. Patient was seen in the emergency center initial EKG was a sinus rhythm but when patient was prepared to leave as is testing was unremarkable, patient was found to be in atrial fibrillation and subsequently started on Cardizem drip at 2.5 mg and heparin drip. Patient continues to smoke a half a pack per day since he was a teenager and was up to 2 packs for most of his life. He last saw Dr. Bruno in the office on 11/04/2022 at that time was advised for smoking cessation, monitor blood pressure repeat lipid panel before next visit in follow-up in 6 months. There is no alcohol abuse history.] EKG #1 sinus rhythm at 75 bpm, #2 atrial fibrillation with ventricular rate of 112 Chest x-ray: Bullous emphysema advanced in the right lower lobe correlate for pulmonary artery hypertension. Biapical pleural scarring or thickening stable. CTA of the chest negative for pulmonary embolism. Reflux of contrast in the hepatic veins correlate for cardiac dysfunction CBC is unremarkable. INR 1. D-dimer 5.73. Sodium 131, potassium 4.6, BUN 16 creatinine 0.58. Magnesium 1.9. Alkaline phosphatase 146 otherwise liver function tests are normal. Troponin negative 1. ProBNP 821. Influenza A, influenza B, RSV, Covid 19 no detected Home cardiac medications: Aspirin 81 mg daily, atorvastatin 40 mg at bedtime, lisinopril 5 mg twice daily, Lopressor 25 mg twice daily, Nitrostat as needed Cardiac catheterization in 1991 revealed normal EF and 60% stenosis of the mid CX Echocardiogram performed in the office 04/2022 revealed EF 52%, [id number] MR, mild MR. Lexiscan stress test performed in the office 04/2021 normal normal EF. Review Of Systems: At the time of my evaluation: Constitutional: No fever, no chills. Reports weakness, reports fatigue no lethargy. EENT: No headache. No dizziness. Lungs: No shortness of breath, cough, no sputum production. No wheezing. Shortness of breath with minimal activity. Cardiovascular: Reports chest pain, no lower extremity edema. No palpitations. No paroxysmal nocturnal dyspnea. No orthopnea. No lightheadedness or dizziness. No syncopal episodes. Abdominal: No abdominal pain. No nausea, vomiting. No diarrhea. No constipa tion. No bloody or tarry stools. Musculoskeletal: No myalgias. No muscle weakness, no frequent falls. Integumentary: No wounds. No rash. No unusual bruising. Neurologic: No aphasia. No facial droop. No change in mentation. Physical examination: Gen: This is a 72-year-old male. He is resting on the edge of his stretcher and appears to be in no acute distress. VS: reviewed HEENT: Head is atraumatic, normocephalic. Pupils equal, round. Sclerae is anicteric. NECK: Supple. No JVD. No Carotid bruit LUNGS: Clear to auscultation. No wheezes or rhonchi. No intercostal retraction s. HEART: Irregular rate and rhythm. 2/6 systolic ejection murmur at the base. ABDOMEN: Soft No tenderness. EXTREMITIES: No pedal edema. No calf tenderness. NEUROLOGICAL: Patient is awake, alert and oriented x3. Assessment: New onset paroxysmal atrial fibrillation History of coronary artery disease Hypertension Hyperlipidemia Peripheral vascular disease Active tobacco use and dependence Plan: Continue patient on Cardizem drip and give 10 mg bolus and increase trip to 7.5 mg per hour Increase metoprolol tartrate to 50 mg twice daily Discontinue heparin drip and start eliquis 5 mg twice daily Resume patient's other home cardiac medications Obtain 2-D echocardiogram and Doppler study to assess cardiac structure and function Obtain carotid ultrasound to rule out carotid artery disease Further recommendations to follow based upon clinical course Thank you kindly for this consultation. Nurse practitioner note has been reviewed, I agree with documented findings and plan of care. Patient was seen and examined. Past Medical History Past Medical History: Coronary Artery Disease (CAD), Cancer, Hyperlipidemia, Hypertension, Myocardial Infarction ([place]), Osteoarthritis (OA), Prostate Disorder Additional Past Medical History / Comment(s): diff swallowing, sore throat, "prediabetic"- diet control,. throat CA Last Myocardial Infarction Date:: 1991 History of Any Multi-Drug Resistant Organisms: None Reported Past Surgical History: Hernia Repair Additional Past Surgical History / Comment(s): AAA repair, oral/tongue surgery, Past Anesthesia/Blood Transfusion Reactions: No Reported Reaction Past Psychological History: No Psychological Hx Reported Smoking Status: Former smoker - Past Family History Brother(s) Family Medical History: Cancer Additional Family Medical History / Comment(s): lung Father Additional Family Medical History / Comment(s): pancreatic Medications and Allergies Home Medications Medication Instructions Recorded Confirmed Type Atorvastatin [Lipitor] 40 mg PO HS 05/21/18 02/22/23 History Metoprolol Tartrate [Lopressor] 25 mg PO BID 05/21/18 02/22/23 History Saw [place] 500 mg PO BID 02/09/19 02/22/23 History Aspirin EC [Ecotrin Low Dose] 81 mg PO DAILY 01/23/21 02/22/23 History Cholecalciferol [Vitamin D3 (25 25 mcg PO DAILY 01/23/21 02/22/23 History Mcg = 1000 Iu)] Multivit-Min/FA/Lycopen/Lutein 1 tab PO DAILY 01/23/21 02/22/23 History [Centrum Silver Tablet] Nitroglycerin Sl Tabs [Nitrostat] 0.4 mg SL Q5M PRN 01/23/21 02/22/23 History lisinopriL [Zestril] 5 mg PO BID 04/30/21 02/22/23 History Allergies Allergy/AdvReac Type Severity Reaction Status Date / Time No Known Allergies Allergy Verified 02/22/23 19:42 Physical Exam Vitals: Vital Signs Temp Pulse Resp BP Pulse Ox 02/23/23 06:27 79 18 123/67 97 02/23/23 05:00 76 16 110/64 02/23/23 04:00 75 14 99/57 02/23/23 03:00 71 18 149/75 02/23/23 02:00 89 18 107/62 96 02/23/23 01:00 86 15 100/71 95 02/23/23 00:00 77 14 127/77 96 09/12/23 23:01 82 18 127/77 96 02/22/23 23:00 88 02/22/23 22:00 134 H 14 124/39 02/22/23 21:00 122 H 20 146/97 02/22/23 20:35 122 H 18 146/97 97 02/22/23 20:00 123 H 12 96 02/22/23 19:14 108 H 14 140/93 96 02/22/23 19:08 131 H 02/22/23 18:30 97.8 F 121 H 18 140/93 97 02/22/23 14:02 20 02/22/23 13:38 98.1 F 83 16 180/101 97 Results 02/22/23 15:19 02/22/23 15:19 Cardiac Enzymes 02/22/23 02/22/23 Range/Units 15:19 15:19 AST 41 (17-59) U/L Troponin I <0.012 (0.000-0.034) ng/mL Coagulation 02/22/23 Range/Units 15:19 PT 10.9 (9.0-12.0) sec APTT 25.7 (22.0-30.0) sec CBC 02/22/23 Range/Units 15:19 WBC 8.2 (3.8-10.6) k/uL RBC 4.64 (4.30-5.90) m/uL Hgb 15.7 (13.0-17.5) gm/dL Hct 46.9 (39.0-53.0) % Plt Count 183 (150-450) k/uL Comprehensive Metabolic Panel 02/22/23 Range/Units 15:19 Sodium 131 L (137-145) mmol/L Potassium 4.6 (3.5-5.1) mmol/L Chloride 95 L (98-107) mmol/L Carbon Dioxide 29 (22-30) mmol/L BUN 16 (9-20) mg/dL Creatinine 0.58 L (0.66-1.25) mg/dL Glucose 91 (74-99) mg/dL Calcium 9.2 (8.4-10.2) mg/dL AST 41 (17-59) U/L ALT 40 (4-49) U/L Alkaline Phosphatase 146 H (38-126) U/L Total Protein 7.0 (6.3-8.2) g/dL Albumin 4.2 (3.5-5.0) g/dL Current Medications Generic Name Dose Route Start Last Admin Trade Name Rubinq PRN Reason Stop Dose Admin Atorvastatin Calcium 40 mg 02/23/23 21:00 Atorvastatin 40 Mg Tab PO HS AGUSTIN Diltiazem HCl 125 mg/ Sodium 125 mls @ 2.5 mls/hr 02/22/23 19:00 02/22/23 19:10 Chloride IV 2.5 mg/hr .Q24H AGUSTIN 2.5 mls/hr Administration 2.5 MG/HR Sodium Chloride 1,000 mls @ 20 mls/hr 02/22/23 21:30 02/22/23 23:26 Saline 0.9% IV 20 mls/hr .Q24H AGUSTIN Administration Lisinopril 5 mg 02/23/23 09:00 Lisinopril 5 Mg Tab PO BID AGUSTIN Melatonin 3 mg 02/23/23 02:06 Melatonin 3 Mg Tablet PO ONCE PRN Sleep Metoprolol Tartrate 25 mg 02/23/23 09:00 Metoprolol Tartrate 25 Mg Tab PO BID AGUSTIN Naloxone HCl 0.2 mg 02/22/23 21:30 Naloxone 0.4 Mg/Ml 1 Ml Vial IV Q2M PRN Opioid Reversal 02/22/23 15:19 02/22/23 15:19
--- NOTE | 2023-02-23 15:35 | US ---
EXAMINATION TYPE: US carotid duplex BILAT DATE OF EXAM: 02/23/2023 COMPARISON: NONE CLINICAL INDICATION: Male, 72 years old with history of PVD; weakness TECHNIQUE: Carotid duplex ultrasound examination. Indirect Doppler criteria was utilized. 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 No evidence of increased velocities IMPRESSION: Atheromatous plaquing within the carotid arteries without significant flow-limiting stenosis. Criteria for Assigning % of Stenosis / Diameter reduction (Estimation based on the indirect measurements of the internal carotid artery velocities (ICA PSV). 1. Normal (no stenosis)=ICA PSV < 125 cm/s: ratio < 2.0: ICA EDV<40 cm/s. 2. Less than 50% stenosis=ICA PSV < 125 cm/s: ratio < 2.0: ICA EDV<40 cm/s. 3. 50 to 69% stenosis=ICA PSV of 125 to 230 cm/s: ration 2.0 ? 4.0: ICA EDV 40-100 cm/s. 4. Greater than 70% stenosis to near occlusion= ICA PSV > 230 cm/s: ratio > 4.0: ICA EDV > 100 cm/s. 5. Near occlusion= ICA PSV velocities may be low or undetectable: variable ratio and ICA EDV. 6. Total occlusion=unable to detect flow.
[2023-02-23] MEDS: DILTIAZEM 125 MG in SODIUM CHLORIDE 0.9% 100 ML IV SCH (19:51)
[2023-02-23] MEDS: METOPROLOL TARTRATE 50 MG TAB PO SCH (20:18)
[2023-02-23] MEDS: FAMOTIDINE 20 MG TAB PO SCH (20:19)
[2023-02-23] MEDS ORDERED: ATORVASTATIN 40 MG TAB PO SCH (21:00)
[2023-02-23] MEDS ORDERED: MELATONIN 3 MG TABLET PO SCH (21:00)
[2023-02-24] MEDS: SODIUM CHLORIDE 0.9% 1,000 ML IV SCH (07:49)
--- NOTE | 2023-02-24 07:50 | CA ---
Transthoracic Echo Report Name: Jeramy Layton Age: 72 Gender: M : 1950 Exam Date: 02/23/2023 12:53 Exam Location: [facility] Ht (in): 71 Wt (lb): 150 Ordering Physician: Aisha Rose Attending/Referring Phys: [id number], Rose Truckload Checker Leo Rios Procedure CPT: Indications: LVF Cardiac Hx: Technical Quality: Fair Contrast 1: Total Dose (mL): Contrast 2: Total Dose (mL): MEASUREMENTS (Male / Female) Normal Values 2D ECHO LV Diastolic Diameter PLAX 4.8 cm 4.2 - 5.9 / 3.9 - 5.3 cm LV Systolic Diameter PLAX 3.7 cm IVS Diastolic Thickness 1.4 cm 0.6 - 1.0 / 0.6 - 0.9 cm LVPW Diastolic Thickness 0.9 cm 0.6 - 1.0 / 0.6 - 0.9 cm LV Relative Wall Thickness 0.5 RV Internal Dim ED PLAX 3.2 cm LVOT Diameter 2.1 cm Aortic Root Diameter 3.3 cm LA Systolic Diameter LX 2.7 cm 3.0 - 4.0 / 2.7 - 3.8 cm LV Diastolic Volume MOD BP 45.7 cm??? 67 - 155 / 56 - 104 cm??? LV Systolic Volume MOD BP 23.2 cm??? 22 - 58 / 19 - 49 cm??? LV Ejection Fraction MOD BP 49.2 % >= 55 % LV Cardiac Index MOD BP 732.7 cm???/min???m??? LV Diastolic Volume MOD 4C 51.3 cm??? LV Systolic Volume MOD 4C 25.9 cm??? LV Ejection Fraction MOD 4C 49.6 % LV Cardiac Index MOD 4C 828.6 cm???/min???m??? LV Diastolic Length 4C 7.7 cm LV Systolic Length 4C 7.0 cm LV Diastolic Volume MOD 2C 37.9 cm??? LV Systolic Volume MOD 2C 20.3 cm??? LV Ejection Fraction MOD 2C 46.6 % LV Cardiac Index MOD 2C 575.6 cm???/min???m??? LV Diastolic Length 2C 7.0 cm LV Systolic Length 2C 6.6 cm LA Volume 46.0 cm??? 18 - 58 / 22 - 52 cm??? DOPPLER AV Peak Velocity 112.5 cm/s AV Peak Gradient 5.1 mmHg AV Mean Velocity 84.6 cm/s AV Mean Gradient 3.1 mmHg AV Velocity Time Integral 27.5 cm LVOT Peak Velocity 67.5 cm/s LVOT Peak Gradient 1.8 mmHg LVOT Velocity Time Integral 17.1 cm LVOT Stroke Volume 61.6 cm??? LVOT Stroke Volume Index 33.0 ml/m??? LVOT Cardiac Index 2007.9 cm???/min???m??? AV Area Cont Eq vti 2.2 cm??? AV Area Cont Eq pk 2.2 cm??? MV Peak Velocity 76.3 cm/s MV Peak Gradient 2.3 mmHg MV Mean Velocity 37.7 cm/s MV Mean Gradient 0.7 mmHg MV Velocity Time Integral 30.4 cm MR Peak Velocity 339.5 cm/s MR Peak Gradient 46.1 mmHg Mitral E Point Velocity 71.5 cm/s Mitral A Point Velocity 65.1 cm/s Mitral E to A Ratio 1.1 MV Deceleration Time 217.9 ms MV E' Velocity 5.7 cm/s Mitral E to MV E' Ratio 12.5 TR Peak Velocity 294.0 cm/s TR Peak Gradient 34.6 mmHg Right Ventricular Systolic Press 39.6 mmHg PV Peak Velocity 77.1 cm/s PV Peak Gradient 2.4 mmHg FINDINGS Left Ventricle Normal LV size and wall thickness. left ventricular ejection fraction is estimated at 55-60 %.normal left ventricular wall motion. Right Ventricle Normal right ventricular size. Right Atrium Normal right atrial size. Left Atrium Normal left atrial size. Mitral Valve Mitral annular calcification. Mild mitral regurgitation. Aortic Valve Trileaflet aortic valve. Mild AV sclerosis/calcification. Tricuspid Valve Structurally normal tricuspid valve. Mild TR. Pulmonic Valve Pulmonic valve not well visualized. No pulmonic regurgitation. Pericardium Normal pericardium. Aorta Normal size aortic root. CONCLUSIONS Technically difficult study. 1. Normal left ventricle size and systolic function 2. Mild mitral and tricuspid regurgitation with mild pulmonary hypertension Previewed by: Dr. Ernestine Bruno MD (Electronically Signed) Final Date: 24 February 2023 07:49
--- NOTE | 2023-02-24 08:24 | P.PN ---
Subjective Progress Note Date: 02/24/23 History of present illness: This is a 72 year old male patient of Dr. Bruno with past medical history of coronary artery disease with 60% mid circumflex stenosis from cardiac catheterization in 1991, hypertension, dyslipidemia, peripheral vascular disease, active tobacco use and dependence. Patient states he has been feeling weak and nervous off and on for a few days and it didn't seem to let up and he chose to come into the hospital for further evaluation. He states he did have a little bit of chest tightness with this as well and shortness of breath with minimal activity. He denies having any lightheadedness or dizziness no syncopal episodes. No palpitations. Patient was seen in the emergency center initial EKG was a sinus rhythm but when patient was prepared to leave as is testing was unremarkable, patient was found to be in atrial fibrillation and subsequently started on Cardizem drip at 2.5 mg and heparin drip. Patient continues to smoke a half a pack per day since he was a teenager and was up to 2 packs for most of his life. He last saw Dr. Bruno in the office on 11/04/2022 at that time was advised for smoking cessation, monitor blood pressure repeat lipid panel before next visit in follow-up in 6 months. There is no alcohol abuse history.] EKG #1 sinus rhythm at 75 bpm, #2 atrial fibrillation with ventricular rate of 112 Chest x-ray: Bullous emphysema advanced in the right lower lobe correlate for pulmonary artery hypertension. Biapical pleural scarring or thickening stable. CTA of the chest negative for pulmonary embolism. Reflux of contrast in the hepatic veins correlate for cardiac dysfunction CBC is unremarkable. INR 1. D-dimer 5.73. Sodium 131, potassium 4.6, BUN 16 creatinine 0.58. Magnesium 1.9. Alkaline phosphatase 146 otherwise liver function tests are normal. Troponin negative 1. ProBNP 821. Influenza A, influenza B, RSV, Covid 19 no detected Home cardiac medications: Aspirin 81 mg daily, atorvastatin 40 mg at bedtime, lisinopril 5 mg twice daily, Lopressor 25 mg twice daily, Nitrostat as needed Cardiac catheterization in 1991 revealed normal EF and 60% stenosis of the mid CX Echocardiogram performed in the office 04/2022 revealed EF 52%, [id number] MR, mild MR. Lexiscan stress test performed in the office 04/2021 normal normal EF. 02/24 Patient is seen today in follow-up of the cardiac stepdown unit. Yesterday we had increased Cardizem drip to 7.5 mg per hour metoprolol tartrate to 50 mg twice daily. He was transitioned to eliquis. Patient has converted to sinus rhythm. Echocardiogram reveals normal left ventricular size and systolic function, mild MR, mild TR, mild pulmonary hypertension. Carotid ultrasound reveals no dynamic Y significant stenosis bilaterally. Weakness is improved. He states he hasn't walked any distance while here. Physical examination: Gen: This is a 72-year-old male. He is resting on the edge of his bed and appears to be in no acute distress. VS: reviewed HEENT: Head is atraumatic, normocephalic. Pupils equal, round. Sclerae is anicteric. NECK: Supple. No JVD. No Carotid bruit LUNGS: Clear to auscultation. No wheezes or rhonchi. No intercostal retractions. HEART: Irregular rate and rhythm. 2/6 systolic ejection murmur at the base. ABDOMEN: Soft No tenderness. EXTREMITIES: No pedal edema. No calf tenderness. NEUROLOGICAL: Patient is awake, alert and oriented x3. Assessment: New onset paroxysmal atrial fibrillation, now in sinus rhythm History of coronary artery disease Hypertension Hyperlipidemia Peripheral vascular disease Active tobacco use and dependence Plan: Continue metoprolol tartrate 50 mg twice daily Continue eliquis 5 mg twice daily, discontinue aspirin Continue patient's other home cardiac medications Patient is cleared for discharge from cardiology and may follow up with Dr. Bruno in 1 week Nurse practitioner note has been reviewed, I agree with documented findings and plan of care. Patient was seen and examined. Objective - Vital Signs Vital signs: Vital Signs Temp 98.0 F 02/24/23 04:00 Pulse 62 02/24/23 04:00 Resp 17 02/24/23 04:00 BP 157/73 02/24/23 04:00 Pulse Ox 94 L 02/24/23 04:00 FiO2 Intake & Output 02/23/23 02/24/23 02/24/23 18:59 06:59 18:59 Intake Total 428.833 120 Output Total 300 Balance 428.833 -180 Intake: Intake, IV Titration 68.833 Amount Diltiazem 125 mg In 68.833 Sodium Chloride 0.9% 100 ml @ 2.5 MG/HR 2.5 mls/hr IV .Q24H [facility] Rx#: [id number] Oral 360 120 Output: Urine 300 Other: Voiding Method Toilet Urinal # Voids 1 - Labs CBC & Chem 7: 02/22/23 15:19 02/22/23 15:19
[2023-02-24 08:48] LABS: African American GFR (CKD) >90 (>60 ml/min/1.73 sqM); Anion Gap 9 mmol/L; Blood Urea Nitrogen 15 mg/dL (9-20); Calcium 9.3 mg/dL (8.4-10.2); Carbon Dioxide 30 mmol/L (22-30); Chloride 92 mmol/L (98-107); Glucose 143 mg/dL (74-99); Non-African American GFR(CKD) >90 (>60 ml/min/1.73 sqM); Sodium 131 mmol/L (137-145)
[2023-02-24] MEDS: FAMOTIDINE 20 MG TAB PO SCH (09:08)
[2023-02-24] MEDS: CHOLECALCIFEROL 25 MCG (1000 IU) TABLET PO SCH (09:08)
[2023-02-24] MEDS: METOPROLOL TARTRATE 50 MG TAB PO SCH (09:08)
[2023-02-24] MEDS: lisinopriL 5 MG TAB PO SCH (09:08)
[2023-02-24] MEDS: APIXABAN 5 MG TAB PO SCH (09:08)
[2023-02-24] MEDS: MULTIVITAMINS, THERA 1 EACH TAB PO SCH (09:08)
[2023-02-24 15:46] VITALS: BP 137/68; PULSE 81
[2023-02-24 15:51] VITALS: RESP 16
== END 2023-02-24 11:55 | disposition home or self-care (01) | DRG 309 ==
LOC: EC 13:37 → 3SCARD 21:31
PROVIDERS: ADMIT Hospitalist; ATTEND Hospitalist
DX: I48.0 Paroxysmal atrial fibrillation (principal); E87.1 Hypo-osmolality and hyponatremia; I10 Essential (primary) hypertension; J43.9 Emphysema, unspecified; I25.10 Atherosclerotic heart disease of native coronary artery without angina pectoris; E11.51 Type 2 diabetes mellitus with diabetic peripheral angiopathy without gangrene; Z20.822 Contact with and (suspected) exposure to COVID-19; E78.00 Pure hypercholesterolemia, unspecified; F17.210 Nicotine dependence, cigarettes, uncomplicated; I49.3 Ventricular premature depolarization; I27.20 Pulmonary hypertension, unspecified; J98.4 Other disorders of lung; Z79.82 Long term (current) use of aspirin; M19.90 Unspecified osteoarthritis, unspecified site; I25.2 Old myocardial infarction; R73.03 Prediabetes; I08.1 Rheumatic disorders of both mitral and tricuspid valves; Z79.899 Other long term (current) drug therapy; Z85.819 Personal history of malignant neoplasm of unspecified site of lip, oral cavity, and pharynx; Z86.79 Personal history of other diseases of the circulatory system; Z87.19 Personal history of other diseases of the digestive system; Z87.891 Personal history of nicotine dependence
CPT/HCPCS: 36415; 71046; 71275; 80048; 80053; 81003; 83605; 83735; 83880; 84443; 84484; 85025; 85379; 85610; 85730; 87636; 93005; 93306; 93880; 94760; 96365; 96366; 96375; 99291

== ENCOUNTER → 2023-04-15 | Outpatient (CLI) | payer MEDICARE, OTHER ==
[2023-04-15 11:09] LABS: HCT 50.1 % (39.6-50.0); HGB 16.7 d/dL (13.0-17.0); MCH 32.9 pg (27.0-32.0); MCHC 33.3 d/dL (32.0-37.0); MCV 98.8 FL (80.0-97.0); Mean Platelet Volume 10.1 FL (9.5-12.2); NRBC Per 100 WBC 0 X 10*3/uL (0.00-0.01); Platelet Count 164 X 10*3/uL (140-440); RBC 5.07 X 10*6/uL (4.40-5.60); RDW 13.2 % (11.5-14.5); WBC 9.35 X 10*3/uL (4.50-10.00)
[2023-04-15 17:04] LABS: ALT 29 U/L (10-49); AST 28 U/L (14-35); Albumin 4.5 d/dL (3.8-4.9); Albumin/Globulin Ratio 2.05 Ratio (1.60-3.17); Alkaline Phosphatase 173 U/L (41-126); BUN/Creat Ratio 15.89 Ratio (12.00-20.00); Blood Urea Nitrogen 14.3 mg/dL (9.0-27.0); Calcium 10.1 mg/dL (8.7-10.3); Carbon Dioxide 29.3 mmol/L (21.6-31.8); Chloride 94 mmol/L (96-109); Chol/HDL Ratio 2.42 Ratio; Globulin 2.2 d/dL (1.6-3.3); Glucose 116 mg/dL (70-110); LDL Cholesterol,Calculated 54.6 mg/dL (0.0-131.0); Sodium 132 mmol/L (135-145); Total Bilirubin 0.8 mg/dL (0.3-1.2); Total Protein 6.7 d/dL (6.2-8.2); VLDL Calculation 19.98 mg/dL (5.00-40.00)
== END | disposition home or self-care (01) ==
LOC: LABPAT 07:18
PROVIDERS: ATTEND Internal Medicine Interventional Cardiology
DX: Z01.812 Encounter for preprocedural laboratory examination (principal); I10 Essential (primary) hypertension; E78.2 Mixed hyperlipidemia; R94.39 Abnormal result of other cardiovascular function study
CPT/HCPCS: 80053; 80061; 85027; 86001

== ENCOUNTER → 2023-04-21 | Day surgery (SDC) | payer MEDICARE, OTHER ==
[2023-04-18 12:29] VITALS: BMI 19.5
[~2023-04-21] MED LIST changes: +ALPRAZolam 0.25 MG TAB PO PRN; +ALPRAZolam 0.5 MG TAB PO PRN; +ASPIRIN 325 MG TAB PO ONE; +ATORVASTATIN 40 MG TAB PO SCH; -DEXAMETHASONE SOD PHOSPHATE 4 MG/ML 1 ML VIAL IV ONE; +HEPARIN SODIUM 1,000 UN/ML (10ML VL) IVP ONE; +HEPARIN SODIUM 1,000 UN/ML (10ML VL) ONE; +IOPAMIDOL-370 100ML BTL INJ ONE; -LACTATED RINGERS 1,000 ML IV SCH; +LIDOCAINE 1% INJ 10MG/ML (20 ML MDV) ONE; +LIDOCAINE 1% INJ 10MG/ML (20 ML MDV) SQ ONE; +METOPROLOL TARTRATE 50 MG TAB PO SCH; +NITROGLYCERIN SL TABS 0.4 MG TAB SUBLINGUAL PRN; -ONDANSETRON 4 MG/2 ML VIAL IVP ONE; +RX INFO: IV CONTRAST WAS GIVEN 1 EACH MISC MISCELLANE PRN; +SODIUM CHLORIDE 0.9% 1,000 ML IV SCH; +SODIUM CHLORIDE 0.9% 1,000 ML in EMPTY BAG 1 BAG IV SCH; +VERAPAMIL 2.5 MG/ML 2 ML AMP ONE; +VERAPAMIL SYRINGE (5 MG/10 ML) INTRAARTER ONE; -ceFAZolin 1,000 MG in SODIUM CHLORIDE 0.9% IRRIGATIO 1,000 ML IRRIGATION PRN; +fentaNYL (PF) 50 MCG/ML 2 ML AMP IVP ONE; +fentaNYL (PF) 50 MCG/ML 2 ML AMP ONE; +lisinopriL 10 MG TAB PO SCH
--- NOTE | 2023-04-21 10:30 | P.CARDCATH ---
Date of Procedure: 04/21/23 Description of Procedure: Cardiac Catheterization: The patient is a 72-year-old male with a known history of CAD, hypertension, hyperlipidemia and chronic tobacco use who has been complaining of progressive dyspnea on exertion and had an abnormal MPI. Recommendations were made regarding cardiac catheterization, the risks and the complications were discussed with the patient who is in full understanding and agreement. Procedure Description: Patient was brought to bed laborer in fasting semi-sedated state after receiving Fentanyl and Benadryl achieiving moderate conscious sedated state. Using Xylocaine Anesthesia and modified Seldinger technique, a 6-Romanian sheath was introduced in the right radial artery . Subsequently, selective coronary angiography was performed using a 5-Romanian 3.5 bend Kathy catheter. Multiple views of the coronary artery including hemiaxial views were obtained. The right Kathy catheter was used to cross the aortic valve and LVEDP was calculated. Following that, catheter and sheath were removed. Hemostasis was obtained with deployment of vascular band . There was no immediate complication. Patient was returned to room in stable condition. Of note, the patient received a total of 4000 units of intravenous heparin as well as intra-arterial verapamil. Findings: Fluoroscopy: Severe calcification of the LAD and the left circumflex was noted Left main: This is a short sized vessel for getting into left circumflex and LAD, left main has no obstructive disease LAD: This is a large-size vessel, heavily calcified proximally, reaching to the apex, giving rise to 2 diagonal branch. The LAD and branches have no obstructive disease. Left circumflex: This is a nondominant large-size vessel giving rise to 4 obtuse marginal branch. After the takeoff of the first obtuse marginal branch the vessel is totally occluded with bridging collaterals and collaterals from the LAD system to the distal obtuse marginal branch. RCA: This is a dominant vessel, moderate caliber. The mid right coronary artery has diffuse plaquing of 30-40% without any high-grade stenosis Left Ventriculogram: Not performed Hemodynamics: There was no gradient across the aortic valve , LVEDP was 8-10 mmHg Conclusion: 1. Heavily calcified coronary arteries 2. Chronically occluded left circumflex and the mid segment with collaterals to the distal segment 3. Mild to Moderate disease in the mid RCA 4. Normal LVEDP Recommendations: I would recommend continued medical therapy with aggressive coronary risk modifications. If he persists in having symptoms the option of PCI of chronic total occlusion of the left circumflex can be explored. The findings and the recommendations were discussed with the patient and the family and they were in full understanding and agreement. Duration of sedation is 17 minutes.
[2023-04-21 12:48] VITALS: RESP 18
[2023-04-21 15:41] VITALS: BP 135/63; PULSE 46
== END | disposition home or self-care (01) ==
LOC: CATHCVL 07:14
PROVIDERS: ATTEND Internal Medicine Interventional Cardiology
DX: I25.10 Atherosclerotic heart disease of native coronary artery without angina pectoris (principal); I10 Essential (primary) hypertension; E78.5 Hyperlipidemia, unspecified; F17.290 Nicotine dependence, other tobacco product, uncomplicated; I73.9 Peripheral vascular disease, unspecified; Z79.82 Long term (current) use of aspirin; Z79.899 Other long term (current) drug therapy; Z79.01 Long term (current) use of anticoagulants
CPT/HCPCS: 93458; 84132; C1769 ×2; C1894; J2001; J3010; J1644; Q9967

== ENCOUNTER → 2023-10-20 | Outpatient (CLI) | payer MEDICARE, OTHER ==
[2023-10-20 15:34] LABS: ALT 37 U/L (10-49); AST 30 U/L (14-35); Chol/HDL Ratio 2.27 Ratio; LDL Cholesterol,Calculated 56.8 mg/dL (0.0-131.0); VLDL Calculation 15.26 mg/dL (5.00-40.00)
== END | disposition home or self-care (01) ==
LOC: LABWHC1 07:19
PROVIDERS: ATTEND Internal Medicine Interventional Cardiology
DX: E78.2 Mixed hyperlipidemia (principal)
CPT/HCPCS: 36415; 80061; 84450; 84460

== ENCOUNTER → 2024-03-01 | Outpatient (CLI) | payer MEDICARE, OTHER ==
--- NOTE | 2024-03-01 12:50 | CTL ---
EXAMINATION TYPE: CT Low Dose Lung DATE OF EXAM ORDERED: 03/01/2024 History: Routine screening CT DLP: 80.[address] CTDI: 1.92 mGy Automated exposure control for dose reduction was used. Comparison: CTA chest dated 02/22/2023 TECHNIQUE: Low dose computed tomography scan was performed through the chest at 1 mm thick sections a nd reconstructed images in multiple planes at 1 mm and [address] DIAGNOSTIC QUALITY: Satisfactory FINDINGS: There are moderate to marked emphysematous changes. There is pleural-parenchymal scarring in the lingula. There is a new 9.3 mm subpleural parenchymal nodule in the left upper lobe medially which is suspicio us for malignancy. There are a few additional 6 to 7 mm nodules in the left lower lobe. There is no airspace consolidation. There is no mediastinal, hilar or axillary adenopathy. There is a 4.1 cm dilatation of the ascending thoracic aorta. There is no pleural effusion, pleural thickening or pneumothorax. No focal osseous lesions are seen. Limited scans the upper abdomen reveals no gross adenopathy. IMPRESSION: 1. Lung RADS category 4X. 9.3 mm spiculated nodule in the left upper lobe medially. PET scan would be useful for further evaluation. In lieu of the PET scan a 3 month follow-up CT thorax is recommended. . Continue routine screening at yearly intervals. 2. Moderate to marked emphysematous changes. 3. 4.1 cm dilatation of ascending thoracic aorta. [facility], , 03/01/2024 12:48 PM
== END | disposition home or self-care (01) ==
LOC: RADCTMAIN 12:06
PROVIDERS: ATTEND Internal Medicine
DX: Z12.2 Encounter for screening for malignant neoplasm of respiratory organs (principal); F17.210 Nicotine dependence, cigarettes, uncomplicated; R91.1 Solitary pulmonary nodule
CPT/HCPCS: 71271

== ENCOUNTER → 2024-07-02 | Outpatient (CLI) | payer MEDICARE, OTHER ==
[2024-07-02 13:39] LABS: African American GFR (CKD) >90 (>60 ml/min/1.73 sqM); Blood Urea Nitrogen 15 mg/dL (9-20); Non-African American GFR(CKD) 89 (>60 ml/min/1.73 sqM)
--- NOTE | 2024-07-02 14:17 | CT ---
EXAMINATION TYPE: CT chest w con CT DLP: 246.40 mGycm, Automated exposure control for dose reduction was used. DATE OF EXAM: 07/02/2024 2:01 PM COMPARISON: CT low-dose lung 03/01/2024, CTA chest 02/22/2023, 03/19/2016 CLINICAL INDICATION:Male, 73 years old with history of R91.8 abnormal findings lung field; PHH, abnor mal finding of lung field, SOB, COPD TECHNIQUE: Multiple axial images were obtained through the chest following the administration of 100 cc of Isovue 300. . Coronal and sagittal reformats reviewed. FINDINGS: LUNGS/ PLEURA: Biapical pleural-parenchymal scar. Advanced centrilobular emphysematous changes. No pl eural effusion, pneumothorax, focal consolidation. Linear scarring within the lingula. Increased siz e of left lower lobe 5.9 mm pulmonary nodule (series 4, image 55), previously 3.8 mm. There are 2 dis tinct pulmonary nodules at the site of previously demonstrated single pulmonary nodule. These measure 4 and 5 mm (series 4, image 12 and 14 respectively). Additional stable posterior right lower lobe 2 to 3 mm pulmonary micronodules. AIRWAY: Patent and unremarkable.. HEART: Size within normal limits.No pericardial effusion. Mild to moderate coronary artery calcificat ions. MEDIASTINUM: No evidence of adenopathy. VASCULATURE: Atherosclerotic calcifications are present throughout the aorta and its branches. Stabl e ascending thoracic aortic aneurysm measuring 4.1 cm. The aortic root measures up to 3.5 cm. The irma cending thoracic aorta measures up to 3.1 cm. Four-vessel aortic arch. No evidence for dissection. No central pulmonary filling defect identified. MUSCULOSKELETAL: Mild disc degeneration changes are present throughout the thoracolumbar spine. No ac alecia osseous abnormality. SOFT TISSUES/LYMPH NODES: Unremarkable. LOWER NECK: No significant findings. UPPER ABDOMEN: Cholelithiasis. IMPRESSION: 1. Few scattered pulmonary nodules measuring less than 6 mm. Decrease in size of previously seen left upper lobe pulmonary nodule with 2 smaller nodules identified in this region measuring up to 5.9 mm. Follow-up CT chest in 3-6 months is recommended. 2. Advanced COPD changes. 3. Stable ascending thoracic aortic aneurysm measuring up to 4.1 cm. [facility], , 07/02/2024 2:15 PM
== END | disposition home or self-care (01) ==
LOC: RADCTMAIN 12:51
PROVIDERS: ATTEND Internal Medicine
DX: J44.9 Chronic obstructive pulmonary disease, unspecified (principal); R91.8 Other nonspecific abnormal finding of lung field; I71.21 Aneurysm of the ascending aorta, without rupture
CPT/HCPCS: 82565; 84520; 71260; 36415; Q9967

== ENCOUNTER → 2024-08-20 | Outpatient (CLI) | payer MEDICARE, OTHER ==
[2024-08-20 10:49] LABS: ALT 39 U/L (10-49); AST 28 U/L (14-35); Albumin 4.3 g/dL (3.8-4.9); Albumin/Globulin Ratio 1.79 Ratio (1.60-3.17); Alkaline Phosphatase 155 U/L (41-126); BUN/Creat Ratio 17.67 Ratio (12.00-20.00); Blood Urea Nitrogen 15.9 mg/dL (9.0-27.0); Calcium 9.6 mg/dL (8.7-10.3); Carbon Dioxide 29.9 mmol/L (21.6-31.8); Chloride 95 mmol/L (96-109); Globulin 2.4 g/dL (1.6-3.3); Glucose 145 mg/dL (70-110); LDL Cholesterol,Calculated 78.9 mg/dL (0.0-131.0); Potassium 5.4 mmol/L (3.5-5.5); Sodium 134 mmol/L (135-145); Total Protein 6.7 g/dL (6.2-8.2); VLDL Calculation 18.58 mg/dL (5.00-40.00)
== END | disposition home or self-care (01) ==
LOC: LABWHC1 07:33
PROVIDERS: ATTEND Internal Medicine Interventional Cardiology
DX: E78.2 Mixed hyperlipidemia (principal)
CPT/HCPCS: 36415; 80053; 80061